=== PATIENT | female | born 1940 | race Caucasian/White ===

== ENCOUNTER → 2016-10-15 | Outpatient (CLI) | payer MEDICARE, OTHER | END | disposition home or self-care (01) | LOC: GMAB 10:33 | PROVIDERS: ATTEND Family Medicine | DX: E78.2 Mixed hyperlipidemia (principal); I10 Essential (primary) hypertension ==

== ENCOUNTER → 2016-10-29 | Outpatient (CLI) | payer MEDICARE, OTHER ==
--- NOTE | 2016-10-29 11:51 | MAM ---
History: Well woman exam. Date of exam: 10/29/2016 Services provided: Bilateral full field digital screening mammography. CAD, the images were reviewed with R2 computer aided detection. FINDINGS: Glandular tissue is scattered glandular contour. Study is compared with 2014 study. No dominant mass, architectural distortion or clustered microcalcification. IMPRESSION: Benign exam Recommendation: Routine annual mammography BIRAD CATEGORY: 2 BENIGN Electronically signed by: Vernell Ricardo MD 10/29/2016 11:50 AM [employer]GER
== END | disposition home or self-care (01) ==
LOC: MAMMO 09:33
PROVIDERS: ATTEND Family Medicine
DX: Z12.31 Encounter for screening mammogram for malignant neoplasm of breast (principal)

== ENCOUNTER 2017-02-26 08:24 | Emergency (ER) | payer MEDICARE, OTHER ==
--- NOTE | 2017-02-26 08:39 | ED.PDOC ---
History of Present Illness - General Chief Complaint: Skin/Abrasion/Tear Stated Complaint: Skin irritation to (R) 3rd finger Time Seen by Provider: 02/26/17 08:39 Source: patient, RN notes reviewed, Vital Signs reviewed Exam Limitations: no limitations - History of Present Illness Initial Comments: Nathaly Davis 76 y/o female noticed pus on her right middle finger 3 days ago and felt more pressure today and noted swelling got worse.No fever but with pus and redness. Timing/Duration: other - 3 days ago Severity: moderate Location: hands - right middle finger Improving Factors: rest Worsening Factors: movement Associated Symptoms: change in skin texture Allergies/Adverse Reactions: Allergies Sulfa Drugs Allergy (Verified 02/26/17 08:39) Other Itching Home Medications: Ambulatory Orders Doxycycline Hyclate 100 mg PO BID #14 tab 02/26/17 Review of Systems - Review of Systems Constitutional: States: no symptoms reported EENTM: States: no symptoms reported Respiratory: States: no symptoms reported Cardiology: States: no symptoms reported Genitourinary: States: no symptoms reported Musculoskeletal: States: see HPI Skin: States: see HPI Endocrine: States: no symptoms reported Hematologic/Lymphatic: States: no symptoms reported Past Medical History (General) - Patient Medical History Hx of COPD: Yes Hx Congestive Heart Failure: No Hx Hypertension: Yes Hx Diabetes: No Hx Other PMH: Yes - rheumatoid arthritis Surgical History: cholecystectomy, other - hysterectomy - Vaccination History Hx Tetanus, Diphtheria Vaccination: No Hx Influenza Vaccination: No Hx Pneumococcal Vaccination: No - Social History Hx Tobacco Use: Yes Hx Alcohol Use: No Hx Substance Use: No Hx Substance Use Treatment: No Hx Depression: No Feels Threatened In Home Enviroment: No Feels Threatened In a Relationship: No Hx Physical Abuse: No Hx Emotional Abuse: No Hx Suspected Abuse: No Family Medical History - Family History Mother Family History: Unknown Living Status: Unknown Hx Family Cancer: Yes - pancreatic cancer -several family members Hx Family;Other: Rheumatoid arthitis-mom Physical Exam - Physical Exam General Appearance: Alert, No apparent distress Eyes, Ears, Nose, Throat Exam: PERRL/EOMI, normal ENT inspection, TMs normal, pharynx normal Neck: non-tender, full range of motion, supple Cardiovascular/Chest: normal peripheral pulses, regular rate, rhythm, no edema, no murmur Respiratory: chest non-tender, lungs clear, normal breath sounds Gastrointestinal/Abdominal: normal bowel sounds, non tender, soft, no organomegaly Extremity: normal range of motion, non-tender, normal inspection, no pedal edema , no calf tenderness Neurologic: no motor/sensory deficits, alert, normal mood/affect, oriented x 3 Skin Exam: warm/dry, normal color, cyanosis Skin Problem Location: other - right middle finger Skin Character: erythema, swelling, tenderness, other - pustular eruption distal right middle finger Lymphatic: no adenopathy Progress - Progress Progress: 02/26/17 09:02 Vital Signs - 8 hr 02/26/17 08:39 Temperature 98.5 F Pulse Rate [ 72 Left Radial] Respiratory 20 Rate Blood Pressure 169/107 [Left Arm] O2 Sat by Pulse 96 Oximetry Procedures - Incision and Drainage #1 Site: right middle finger Procedure and Prep: betadine prep, wound culture collected, pus drained Blade Size: 11 Departure - Departure Clinical Impression: Paronychia of third finger, right Time of Disposition: 09:06 Disposition: Discharge to Home or Self Care Condition: Fair Departure Forms: ED Discharge - Pt. Copy, Patient Portal Self Enrollment Instructions: DI for Paronychia Referrals: Devin Rogers MD [Primary Care Provider] - 1-2 Weeks Prescriptions: Doxycycline Hyclate 100 mg PO BID #14 tab Home Medications: Ambulatory Orders Doxycycline Hyclate 100 mg PO BID #14 tab 02/26/17 Additional Instructions: Return to emergency room as needed;Follow up with primary md 03/04/2017 patient to call for appointment
[2017-02-26 08:40] VITALS: BP 169/107; TEMP 98.5; O2SAT 96
[2017-02-26] MEDS ORDERED: NEOMYCIN-BACITRACIN-POLYMYXIN 0.9 GM UD TOP ONE (08:47)
[2017-02-26] MEDS ORDERED: CLINDAMYCIN PHOSPHATE 150 MG/ML VIAL IM ONE (08:54)
[2017-02-26] MEDS ORDERED: CLINDAMYCIN HCL CAP 150 MG CAP PO ONE (08:56)
[2017-02-26] MEDS ORDERED: TETANUS,DIPHTHERIA,PERTUSSIS 1 EA SYG IM ONE (08:57)
== END 2017-02-26 09:30 | disposition home or self-care (01) ==
LOC: ER 08:24
DX: L03.011 Cellulitis of right finger (principal); J44.9 Chronic obstructive pulmonary disease, unspecified; I10 Essential (primary) hypertension; M06.9 Rheumatoid arthritis, unspecified; Z87.891 Personal history of nicotine dependence; Z88.2 Allergy status to sulfonamides; Z23 Encounter for immunization
CPT/HCPCS: 87070; 87077; 87186; J3490

== ENCOUNTER 2017-05-22 13:19 | Emergency (ER) | payer MEDICARE, OTHER ==
[2017-05-22 13:55] VITALS: TEMP 96.4
--- NOTE | 2017-05-22 14:22 | ED.PDOC ---
History of Present Illness - General Chief Complaint: Back Pain or Injury Stated Complaint: mid back pain Time Seen by Provider: 05/22/17 14:21 Source: patient Exam Limitations: no limitations - History of Present Illness Initial Comments: Nathaly Davis 76 y/o female stated that she had been having sharp pains on her back radiating to lower abdomen.Denies nausea,vomiting ,diarrhea,bowel or bladder dysfunction.Also stated moving stuff at home Thursday but denies heavy lifting.Standing and rolling over from lying position aggravates symptoms. Timing/Duration: other - 5 days ago Quality/Severity: sharpness Back Pain Location: T-spine, lumbar spine, paraspinous muscles Back Pain Radiation: other - see hpi Method of Injury/Prior Injury: unknown Improving Factors: rest Worsening Factors: movement Associated Symptoms: muscle spasms Allergies/Adverse Reactions: Allergies Sulfa Drugs Allergy (Verified 02/26/17 08:39) Other Itching Home Medications: Ambulatory Orders Baclofen 10 mg PO BID PRN #20 tab 05/22/17 Simvastatin 05/22/17 Tramadol HCl 50 mg PO BID PRN #30 tab 05/22/17 Voltaren 05/22/17 Review of Systems - Review of Systems Constitutional: States: other - fatigability EENTM: States: no symptoms reported Respiratory: States: no symptoms reported Cardiology: States: no symptoms reported Gastrointestinal/Abdominal: States: no symptoms reported Genitourinary: States: no symptoms reported Musculoskeletal: States: see HPI Neurological: States: no symptoms reported Past Medical History (General) - Patient Medical History Hx of COPD: Yes Hx Congestive Heart Failure: No Hx Hypertension: Yes Hx Diabetes: No Hx Other PMH: Yes - Rheumatoid arthritis Surgical History: cholecystectomy, other - knee ,foot,colonoscopy - Vaccination History Hx Tetanus, Diphtheria Vaccination: No Hx Influenza Vaccination: No Hx Pneumococcal Vaccination: No - Social History Hx Tobacco Use: Yes Hx Alcohol Use: No Hx Substance Use: No Hx Substance Use Treatment: No Hx Depression: No Hx Physical Abuse: No Hx Emotional Abuse: No Hx Suspected Abuse: No Family Medical History - Family History Mother Family History: Unknown Living Status: Unknown Age at (years of age): 95 Hx Cardiac Disease: Yes - parents Hx Family Cancer: Yes - pancreatic cancer -several family members Hx Family;Other: Rheumatoid arthitis-mom Physical Exam - Physical Exam General Appearance: Alert, Comfortable, No apparent distress Eyes, Ears, Nose, Throat Exam: PERRL/EOMI, normal ENT inspection Neck Exam: non-tender, normal alignment, normal inspection Cardiovascular/Respiratory: regular rate, rhythm, no M/R/G, normal peripheral pulses, normal breath sounds Peripheral Pulses: radial,right: 1+, radial,left: 1+ Gastrointestinal/Abdominal: non tender, soft, no organomegaly Back Exam: no CVA tenderness, no vertebral tenderness, muscle spasm - paralumbar muscle Neurologic: no motor/sensory deficits, alert, normal mood/affect, oriented x 3 Skin Exam: normal color, warm/dry Progress - Progress Progress: 05/22/17 14:45 Vital Signs - 8 hr 05/22/17 13:51 Temperature 96.4 F L Pulse Rate [ 63 Left Brachial] Respiratory 20 Rate Blood Pressure 144/82 [Left Arm] O2 Sat by Pulse 94 L Oximetry - Results/Orders Results/Orders: Laboratory Tests 05/22/17 05/22/17 14:47 14:58 WBC 8.6 RBC 5.28 Hgb 15.0 Hct 45.1 MCV 85.5 MCH 28.4 MCHC 33.2 RDW 13.9 Plt Count 213 MPV 7.6 Absolute Neuts (auto) 7.20 H Absolute Lymphs (auto) 0.80 L Absolute Monos (auto) 0.30 Absolute Eos (auto) 0.10 Absolute Basos (auto) 0.10 Neutrophils % 84.3 H Lymphocytes % 9.4 L Monocytes % 3.9 Eosinophils % 1.7 Basophils % 0.7 Urine Color Yellow Urine Appearance Clear Urine pH 6.0 Ur Specific [place] >= 1.030 Urine Protein 30 Urine Glucose (UA) Negative Urine Ketones Trace Urine Blood Moderate H Urine Nitrite Negative Urine Bilirubin Small H Urine Urobilinogen 0.2 Ur Leukocyte Esterase Negative Urine RBC 10-20 H Urine WBC 0 Ur Epithelial Cells 10-20 Urine Bacteria 1+ Discuss her microscopic hematuria and she stated that she had it for 20 years and multiple test done and nobody could figure out whats causing it. - EKG/XRAY/CT XRAY: chest - chest copd changes and unchanged pulmonary nodule Departure - Departure Clinical Impression: Low back pain associated with a spinal disorder other than radiculopathy or spinal stenosis Time of Disposition: 15:35 Disposition: Discharge to Home or Self Care Condition: Fair Departure Forms: ED Discharge - Pt. Copy, Patient Portal Self Enrollment Instructions: DI for Low Back Pain Referrals: Devin Rogers MD [Primary Care Provider] - 1-2 Weeks Prescriptions: Baclofen 10 mg PO BID PRN #20 tab PRN Reason: Muscle Spasms Tramadol HCl 50 mg PO BID PRN #30 tab PRN Reason: Pain Home Medications: Ambulatory Orders Baclofen 10 mg PO BID PRN #20 tab 05/22/17 Simvastatin 05/22/17 Tramadol HCl 50 mg PO BID PRN #30 tab 05/22/17 Voltaren 05/22/17
--- NOTE | 2017-05-22 15:00 | RAD ---
EXAM DESCRIPTION: Lumbar Spine 3 Views CLINICAL HISTORY: 76 years Female, pain COMPARISON: None. FINDINGS: 3 views of the lumbar spine show diffuse osteopenia of the osseous structures. No obvious compression fracture deformity is seen. There is grade 2 spondylolisthesis of L5 on S1 with severe disc space narrowing and vacuum disc. Suspect chronic L5 pars defects. There is at least moderate facet hypertrophic and degenerative change from L4 through S1. IMPRESSION: Grade 2 spondylolisthesis at L5-S1. Facet arthropathy from L4 through S1 is seen. Severe disc disease at L5-S1 is also noted. Electronically signed by: Jaxon Palmer MD 05/22/2017 2:59 PM CDT
--- NOTE | 2017-05-22 15:01 | RAD ---
EXAM DESCRIPTION: Thoracic Spine,AP Lateral CLINICAL HISTORY: pain COMPARISON: None. IMPRESSION: 2 views of the thoracic spine show diffuse osteopenia of the osseous structures. There is smooth increased kyphosis of the mid to upper thoracic spine. No compression fracture deformity is identified. Mild to moderate disc space narrowing most prominent in the central thoracic spine consistent with disc degenerative changes are seen. Moderate tortuosity of the thoracic aorta is seen. Electronically signed by: Jaxon Palmer MD 05/22/2017 3:00 PM CDT
--- NOTE | 2017-05-22 15:03 | RAD ---
EXAM DESCRIPTION: Chest,2 Views CLINICAL HISTORY: pain/fatigability COMPARISON: November 24, 2015 FINDINGS: Two-view chest x-ray shows mild enlargement of the cardiac silhouette without pulmonary vascular congestion. The lungs are mildly hyperinflated with chronic interstitial changes. Calcified pulmonary nodule right lung base is stable. Costophrenic angles are sharp. Osseous structures are unremarkable IMPRESSION: No radiographic evidence of acute cardiopulmonary disease in this emphysematous chest. Electronically signed by: Jaxon Palmer MD 05/22/2017 3:01 PM CDT
[2017-05-22 15:21] VITALS: BP 135/83; O2SAT 93
== END 2017-05-22 15:46 | disposition home or self-care (01) ==
LOC: ER 13:19
DX: M54.5 Low back pain (principal); R91.1 Solitary pulmonary nodule; R31.29 Other microscopic hematuria; J44.9 Chronic obstructive pulmonary disease, unspecified; I10 Essential (primary) hypertension; M06.9 Rheumatoid arthritis, unspecified; Z87.891 Personal history of nicotine dependence; Z88.2 Allergy status to sulfonamides

== ENCOUNTER → 2017-05-26 | Outpatient (CLI) | payer MEDICARE, OTHER ==
--- NOTE | 2017-05-27 11:52 | CT ---
EXAM DESCRIPTION: CT ABDOMEN AND PELVIS WITHOUT AND WITH CONTRAST CLINICAL HISTORY: NAUSEA AND VOMITING, UNSPECIFIED COMPARISON: Chest CT December 03, 2015 TECHNIQUE: CT of the abdomen and pelvis are performed prior to and during IV bolus administration of nonionic contrast. Oral contrast media was not utilized This exam was performed according to our departmental dose-optimization program, which includes automated exposure control, adjustment of the mA and/or kV according to patient size and/or use of iterative reconstruction technique. FINDINGS: The right lung base is clear except for a small calcified granuloma and a small area of platelike atelectasis or scarring at the lateral right lung base. The left lung base is abnormal with dense segmental or opacification consistent with dense atelectasis or consolidation of the posterior medial basilar segment of the left lower lobe. This is not well appreciated on the recent chest x-ray but was not present on prior chest CT December 03, 2015. Acute pneumonia or atelectasis is suspected. An infiltrative process such as a bronchoalveolar neoplasm cannot be excluded but is thought less likely. A small sliding-type hiatal hernia is present. The gallbladder is surgically absent and the liver demonstrates no cystic or solid masses but increasing mild intrahepatic and moderate extrahepatic ductal dilation is present and more prominent than prior 2015 CT examination. Common bile duct approaches 1 cm in diameter. A small normal spleen is present and the pancreas and adrenal glands appear normal with no evidence of cystic or solid mass or inflammation. Left kidney is normal in appearance with normal renal function. Right kidney demonstrates a bilobed or two adjacent benign-appearing cyst with a total complex approximately 2.5 x 3.5 cm in size projecting from the mid kidney posterior laterally. Aortic calcification with no significant aneurysm is present. Layering contrast in the bladder is evident with an anteverted uterus to the left of midline. Sigmoid colonic diverticulosis is present without acute inflammation. Small or large bowel caliber are normal with no evidence of obstruction. No abdominal ascites is noted. No adnexal masses or fluid collections are seen. Severe disc degenerative changes and grade 2 spondylolisthesis of L5 on S1 with what appears to be intact on pars with severe spinal stenosis at the L5-S1 level is apparent. Normal alignment is present from L4-5 cephalad. IMPRESSION: 1. New wedgelike dense opacification of the medial posterior left lung base consistent with segmental consolidation or atelectasis and new from November 2015 study. I would favor mucus plugging with a drowned lung or developing atelectasis or the possibility of a segmental pneumonitis. An infiltrative process such as a bronchoalveolar carcinoma is thought less likely but cannot be completely excluded. Complete chest CT for evaluation of the entire lung corrales may be of value. 2. Prior cholecystectomy with increasing intrahepatic and extrahepatic bile duct dilatation without obstructing mass or definite intraductal stone identified. Common bile duct is dilated to the level of the duodenum. Correlation with liver function studies recommended. 3. Benign cystic disease of the mid right kidney. 4. Severe disc degenerative disease and grade 2 spondylolisthesis L5 on S1 on a degenerative basis with severe central canal stenosis at L5-S1. 5. Left colonic diverticulosis and small hiatal hernia. Electronically signed by: Ross Magallon MD 05/27/2017 11:50 AM CDT
== END | disposition home or self-care (01) ==
LOC: CT 11:32
PROVIDERS: ATTEND Family Medicine
DX: R31.1 Benign essential microscopic hematuria (principal); R11.2 Nausea with vomiting, unspecified

== ENCOUNTER → 2017-06-01 | Outpatient (CLI) | payer MEDICARE, OTHER ==
--- NOTE | 2017-06-01 12:04 | CT ---
EXAM DESCRIPTION: Chest w/o Contrast: CT. CLINICAL HISTORY: PULMONARY atelectasis or consolidation. COMPARISON: CT scan of abdomen 05/26/2017. TECHNIQUE: Spiral-axial scans at 5.0 mm intervals through the lungs and thorax without IV contrast. 2.5 mm lung algorithm axial reconstructions. Coronal and sagittal 2.0 Mm reconstructions. Total Exam DLP: 319.86 mGy-cm. This exam was performed according to our departmental dose-optimization program which includes automated exposure control, adjustment of the mA and/or kV according to patient size and/or use of iterative reconstruction technique; to reduce radiation dose to as low as reasonably achievable (ALARA). FINDINGS: Increased density in the medial basal segments of the left lower lobe extending from the hemidiaphragm to the inferior left hilum and abutting the medial and posterior left pleura and the descending aorta/mediastinum border. Diffuse air bronchograms noted within this tissue which are more prevalent compared to the prior study. Endobronchial debris/tissue in the proximal left lower lobe bronchus (series 4, images 56-59). Increased volume overall bilateral lungs more on the right than the left. 5.5 mm nodule in the inferior lateral segment of the right middle lobe abutting the major fissure just above the right hemidiaphragm (image 90). Soft tissue density with smooth borders. No abnormal nodules elsewhere. Scarring or minimal atelectasis in the inferior lateral lingula. No pleural effusion or pneumothorax. Heterogeneous density in the thyroid gland. No dominant lymph nodes in the mediastinum or hilum but evaluation is limited due to lack of IV contrast. Coronary artery calcifications diffusely. Atherosclerotic calcifications in the aorta and proximal brachiocephalic vessels. No enlarged lymph nodes in the axillary regions bilaterally. Diffuse thoracic spondylosis with scoliosis with no bone destruction. IMPRESSION: 1. Atelectasis and/or pneumonia in the medial and basal segments of the left lower lobe abutting the pleura and the mediastinum. Air bronchograms are noted. Left hemithorax volume loss. No debris or tissue in the proximal left lower lobe bronchial branch to the segments. No definite mass, but consider bronchoscopic evaluation/tissue sampling. No left pleural effusion. Alternatively, consider CT thoracic follow-up three month interval. 2. 5.5 mm soft tissue nodule with smooth borders in the right middle lobe. Follow-up interval as noted in Paragraph 1, and according to [facility] Best Practice guidelines utilizing 2017 Fleischner Society recommendations for solitary pulmonary nodule follow-up. Please see below.* 3. Evaluation of lymph nodes in the mediastinum and hilum limited due to lack of IV contrast. Moderate coronary artery calcification. Atherosclerotic aortic calcification. *2017 Fleischner Society Recommendations for Single Solid Lung Nodule Follow-Up based on size (average of long- and short-axis diameters) <6 mm Low-Risk Patient: No routine follow-up <6 mm High-Risk Patient: Optional CT at 12 months 6-8 mm Low-Risk Patient: CT at 6-[address] at 18-24 months 6-8 mm High-Risk Patient: CT at 6-[address] at 18-24 months >8 mm Low-Risk Patient: Consider CT, PET/CT or tissue sampling at 3 months >8 mm High-Risk Patient: Same as for low-risk patient Electronically signed by: Isaac Mendoza MD 06/01/2017 12:03 PM CDT
== END | disposition home or self-care (01) ==
LOC: CT 11:49
PROVIDERS: ATTEND Family Medicine
DX: R91.1 Solitary pulmonary nodule (principal)

== ENCOUNTER → 2017-11-03 | Outpatient (CLI) | payer MEDICARE, OTHER | LOC: GMAB 10:56 | PROVIDERS: ATTEND Family Medicine | DX: I10 Essential (primary) hypertension (principal) ==

== ENCOUNTER → 2018-12-01 | Outpatient (CLI) | payer MEDICARE, OTHER ==
--- NOTE | 2018-12-01 16:45 | CT ---
EXAM DESCRIPTION: Chest w/o Contrast CLINICAL HISTORY: 78 years, Female, PULM NODULE COMPARISON: June 01, 2017 TECHNIQUE: Thin-section noncontrast axial CT images are obtained according to our protocol. Reconstructed MPR images are created and reviewed as well. This exam was performed according to our departmental dose-optimization program, which includes automated exposure control, adjustment of the mA and/or kV according to patient size and/or use of iterative reconstruction technique. FINDINGS: Unenhanced examination of the chest demonstrates a stable 5 mm nodule in the anterior right lung base adjacent to the diaphragm, slightly marred by respiratory motion on today's study but unchanged in comparison to examination 18 months earlier. No further workup is recommended. This likely represents a small calcified granuloma. Small amount of debris in the left lower lobe bronchus is no longer apparent as noted on prior examination. At the anterior left lung base there is linear stranding and hazy groundglass opacity most suspicious for a patchy area of infiltrate. This represents a new finding from prior study. This is in the anterolateral lung base in the region of the lingula. Soft tissue window images demonstrate an ectatic tortuous and calcified aorta and kyphosis of the dorsal spine without compression deformity or destructive process. No pleural effusions or additional areas of dense consolidation is seen. The thoracic inlet and superior mediastinum is unremarkable. Extensive coronary calcification with normal sized heart is noted. No significant hiatal hernia noted. One upper normal right axillary lymph node approximately 13 or 14 mm in diameter is evident. IMPRESSION: 1. Stable 5 mm nodule at the anterior right lung base, likely calcified. This is unchanged from prior study but less well delineated because of respiratory motion artifact. No additional workup recommended. 2. New stranding and vague groundglass opacity in the left anterior lung base in the region of the left lingula suspicious for a patchy area new infiltrative change. Correlation with physical examination and consideration for a follow-up study in several months to be certain of clearing is recommended. 3. Upper normal heart size with extensive coronary calcification. Kyphosis of the dorsal spine is noted with interval clearing of debris noted in the left lower lobe bronchus in comparison to prior remote study. Tiny amount of mucus or debris is present in the distal trachea just above the arian posteriorly. Electronically signed by: Ross Magallon MD 12/01/2018 4:42 PM CDT
== END ==
LOC: CT 15:52
PROVIDERS: ATTEND Family Medicine
DX: R91.1 Solitary pulmonary nodule (principal)

== ENCOUNTER 2019-10-11 22:31 | Emergency (ER) | payer MEDICARE, OTHER ==
--- NOTE | 2019-10-11 23:08 | ED.PDOC ---
History of Present Illness - General Chief Complaint: Lower Extremity Injury Stated Complaint: left hip pain Time Seen by Provider: 10/11/19 22:55 Source: patient, EMS Exam Limitations: no limitations - History of Present Illness Initial Comments: GROUND LEVEL FALL. L HIP AND THIGH PAIN. PT WAS AT HOME. SHE TURNED AND SLIPPED/TRIPPED. SHE FELL AND LANDED ON THE CARPET ONTO HER LEFT HIP. PAIN ENSUED IN L HIP AND L PROXIMAL THIGH. SHE DENIES HEAD COLLISION, LOC, OR ANY OTHER AREAS OF TRAUMA OR PAIN. Occurred: this evening Method of Injury: fell Improving Factors: immobilization Worsening Factors: movement Allergies/Adverse Reactions: Allergies Sulfa Drugs Allergy (Verified 02/26/17 08:39) Other Itching Home Medications: Ambulatory Orders Baclofen 10 mg PO BID PRN #20 tab 05/22/17 Simvastatin 05/22/17 Tramadol HCl 50 mg PO BID PRN #30 tab 05/22/17 Voltaren 05/22/17 Review of Systems - Review of Systems Constitutional: States: no symptoms reported EENTM: States: no symptoms reported. Denies: ear pain, throat pain, mouth pain Respiratory: States: no symptoms reported Cardiology: States: no symptoms reported. Denies: chest pain Gastrointestinal/Abdominal: States: no symptoms reported. Denies: abdominal pain Genitourinary: States: no symptoms reported. Denies: pain Musculoskeletal: States: see HPI. Denies: back pain, neck pain Skin: States: no symptoms reported. Denies: lesions, rash Neurological: Denies: headache, numbness, paresthesia, tingling, tremors, weakness Endocrine: States: no symptoms reported Hematologic/Lymphatic: Denies: blood clots, easy bleeding, easy bruising All other Systems: Reviewed and Negative Past Medical History (General) - Patient Medical History Hx Seizures: No Hx Stroke: No Hx Dementia: No Hx Asthma: No Hx of COPD: Yes Hx Cardiac Disorders: No Hx Congestive Heart Failure: No Hx Pacemaker: No Hx Hypertension: Yes Hx Thyroid Disease: No Hx Diabetes: No Hx Gastroesophageal Reflux: No Hx Renal Disease: No Hx Cancer: No Hx of HIV: No Hx Hepatitis C: No Hx MRSA: No Surgical History: cholecystectomy, other - Vaccination History Hx Tetanus, Diphtheria Vaccination: No Hx Influenza Vaccination: No Hx Pneumococcal Vaccination: No Immunizations Up to Date: No - Social History Hx Tobacco Use: Yes Hx Chewing Tobacco Use: No Hx Alcohol Use: No Hx Substance Use: No Hx Substance Use Treatment: No Hx Depression: No Feels Threatened In Home Enviroment: No Feels Threatened In a Relationship: No Hx Physical Abuse: No Hx Emotional Abuse: No Hx Suspected Abuse: No - Activities of Daily Living Hospice Agency (if applicable):: None - Female History Patient is a Female of Child Bearing Age (10 -59 yrs old): No - Triage Comment ED Triage Comment: pt states she has carpet at home and was on floor aprox 2 hours unable to get up Family Medical History - Family History Mother Family History: Unknown Living Status: Unknown Age at (years of age): 89 Hx Cardiac Disease: Yes - parents Hx Family Cancer: Yes - pancreatic cancer -several family members Hx Family;Other: Rheumatoid arthitis-mom Physical Exam - Physical Exam General Appearance: Alert, Other - RESTING Eyes, Ears, Nose, Throat: PERRL/EOMI, normal ENT inspection, TMs normal, pharynx normal Neck: non-tender, full range of motion, supple Cardiovascular/Respiratory: regular rate, rhythm, no M/R/G, normal peripheral pulses, no JVD, normal breath sounds, no respiratory distress, other - NORMAL DP/PT PULSES, EQUAL BL. VASCULARLY IN TACT - NO FEET PARESTHESIAS, NL FEET SENSORY AND MOTOR. Gastrointestinal/Abdominal: non-tender, no organomegaly Back: normal inspection, no CVA tenderness, no vertebral tenderness Thigh/Hip: normal inspection, bone tenderness, limited ROM - DUE TO PAIN. , so ft tissue tenderness Leg: normal inspection, non-tender, no evidence of injury, normal ROM, other - NO LLE ANGULATION NOR FORESHORTENING. Knee: normal inspection, non-tender, no evidence of injury, normal ROM Ankle: normal inspection, non-tender, no evidence of injury, normal ROM Foot: normal inspection, non-tender, no evidence of injury, normal ROM Neuro/Tendon: normal sensation, normal motor functions, normal tendon functions, responds to pain Mental Status: alert, oriented x 3 Skin: normal color, warm/dry, other - NO ECCHYMOSIS. Progress - Progress Progress: 10/11/19 23:46 L PELIVIS, HIP, AND FEMUR XRAYS: LEFT INTERTROCHANTERIC FRX, ONLY SLIGHTLY DISPLACED. NOT GROSSLY ROTATED AND DISTAL PULSES ARE STRONG, THUS NO ER REDUCTION NOR TRACTION NEEDED. WE ARE CONTACTING DR. ANTONIO, ORTHO, TO INQUIRE ABOUT MGMT. 10/12/19 00:33 [facility]THO IS UNAVAILABLE TONIGHT, THUS I AM CALLING [facility] TO TRANSFER FOR ORTHOPEDIC MGMT. 10/12/19 00:37 10/12/19 00:43 [facility], DR. SMALLS ER, ACCEPTED TRANSFER. THANK YOU VERY MUCH, [facility], FOR ACCEPTING FURTHER CARE! - Results/Orders Results/Orders: O2 SATS 92% ON RA, UP FROM 88% ON ER PRESENTATION. Departure - Departure Clinical Impression: Fracture due to fall, Hip pain, left Closed intertrochanteric fracture of left femur Qualifiers: Encounter type: initial encounter Fracture alignment: displaced Qualified Code(s): S72.142A - Displaced intertrochanteric fracture of left femur, initial encounter for closed fracture Disposition: Transfer to Hospital Condition: Good Departure Forms: ED Discharge - Pt. Copy, Patient Portal Self Enrollment Referrals: RADHA PARRA MD [Primary Care Provider] - 1-2 Weeks Home Medications: Ambulatory Orders Baclofen 10 mg PO BID PRN #20 tab 05/22/17 Simvastatin 05/22/17 Tramadol HCl 50 mg PO BID PRN #30 tab 05/22/17 Voltaren 05/22/17 Transfer to Outside Facility - Transfer Information Decision to Transfer Date: 10/12/19 Decision to Transfer Time: 00:45 Reason for Transfer: required specialist not available Accepting Provider:: DR. SMALLS, ER Accepting Facility: [facility]
--- NOTE | 2019-10-11 23:24 | RAD ---
EXAM: XR Left Hip With Pelvis When Performed, 2 or 3 Views CLINICAL HISTORY: The patient is 79 years old and is Female; fall pain TECHNIQUE: Two or three views of the left hip with pelvis when performed. COMPARISON: No relevant prior studies available. FINDINGS: BONES/JOINTS: A left intertrochanteric fracture is present. The femoral head is well located. No dislocation. SOFT TISSUES: Unremarkable. IMPRESSION: Left intertrochanteric fracture. Electronically signed by: Demetra Pacheco MD 10/11/2019 11:22 PM [facility]
--- NOTE | 2019-10-11 23:24 | RAD ---
EXAM: XR Pelvis, 1 or 2 Views CLINICAL HISTORY: The patient is 79 years old and is Female; fall pain TECHNIQUE: Frontal view of the pelvis. COMPARISON: No relevant prior studies available. FINDINGS: BONES/JOINTS: Left intertrochanteric fracture is present. The femoral heads are well located. The SI joints and pubic symphysis are intact without evidence of diastases. No dislocation. SOFT TISSUES: Unremarkable. IMPRESSION: Left intertrochanteric fracture. Electronically signed by: Demetra Pacheco MD 10/11/2019 11:23 PM [facility]
--- NOTE | 2019-10-11 23:25 | RAD ---
EXAM: XR Left Femur, 2 Views CLINICAL HISTORY: The patient is 79 years old and is Female; GROUND LEVEL FALL. L HIP AND THIGH PAIN. TECHNIQUE: Frontal and lateral views of the left femur. COMPARISON: No relevant prior studies available. FINDINGS: BONES/JOINTS: A left intertrochanteric fracture is present which is slightly displaced. Postsurgical change of the left knee is noted. The bones are osteopenic. No dislocation. SOFT TISSUES: Unremarkable. IMPRESSION: Left intertrochanteric fracture. Electronically signed by: Demetra Pacheco MD 10/11/2019 11:24 PM [facility]
[2019-10-12] MEDS ORDERED: MORPHINE SULFATE INJ 10 MG/ML VIAL ONE (00:52)
[2019-10-12] MEDS: MORPHINE SULFATE INJ 10 MG/ML VIAL IV ONE ×2 (00:54→01:25)
[2019-10-12 01:33] VITALS: BP 138/88; TEMP 97.6; O2SAT 97
== END 2019-10-12 01:33 | disposition short-term general hospital (02) ==
LOC: ER 22:31
DX: S72.142A Displaced intertrochanteric fracture of left femur, initial encounter for closed fracture (principal); J44.9 Chronic obstructive pulmonary disease, unspecified; I10 Essential (primary) hypertension; Z87.891 Personal history of nicotine dependence; Z88.2 Allergy status to sulfonamides; Z79.899 Other long term (current) drug therapy; W01.0XXA Fall on same level from slipping, tripping and stumbling without subsequent striking against object, initial encounter; Y92.009 Unspecified place in unspecified non-institutional (private) residence as the place of occurrence of the external cause
CPT/HCPCS: 72170; 73502; 73551; 81001; J2270

== ENCOUNTER → 2019-11-10 | Outpatient (CLI) | payer MEDICARE, OTHER | DX: R50.9 Fever, unspecified (principal) ==

== ENCOUNTER → 2020-01-04 | Outpatient (CLI) | payer MEDICARE, OTHER ==
--- NOTE | 2020-01-04 15:51 | CT ---
EXAM DESCRIPTION: Head CLINICAL HISTORY: 79 years Female, UNSPEC. DEMENTIA WITH BEHAVIORAL DISTURBANCE COMPARISON: None. TECHNIQUE: Axial images obtained from the skull base to the vertex without intravenous contrast with images. Coronal and sagittal reformations provided. This exam was performed according to our departmental dose-optimization program, which includes automated exposure control, adjustment of the mA and/or kV according to patient size and/or use of iterative reconstruction technique. Time Last Seen Well (If known) for Code Stroke: n/a FINDINGS: Brain Parenchyma, ventricles, meninges, and extra-axial spaces: Severe frontotemporal predominant cerebral atrophy. Severe Nonspecific white matter hypodensities in the cerebral hemispheres likely related to ischemic small vessel disease. Possible difficulty differentiating a small acute infarction given these hypodensities. Subcentimeter cortical infarction versus prominent perivascular space left basal ganglia. No acute intracranial hemorrhage. No abnormal extra-axial fluid collection. Vascular: Atherosclerosis is within the carotid siphons. Calvarium, paranasal sinuses, mastoids, and orbits: Calvarium intact. Visualized paranasal sinuses and mastoid air cells clear. Bilateral lens replacement. IMPRESSION: 1. No acute intracranial abnormality. Of note, CT is relatively insensitive when compared to MRI for evaluation of acute ischemic infarction. If there remains clinical concern, MRI of the brain is recommended. 2. Chronic lacunar infarction versus prominent perivascular space left basal ganglia. 3. Severe frontotemporal predominant cerebral atrophy. 4. Severe chronic microangiopathy. Electronically signed by: Meño Ren MD 01/04/2020 3:50 PM CDT
== END ==
LOC: GMAE 14:40
PROVIDERS: ATTEND Family Medicine
DX: F03.90 Unspecified dementia, unspecified severity, without behavioral disturbance, psychotic disturbance, mood disturbance, and anxiety (principal); G93.9 Disorder of brain, unspecified

== ENCOUNTER 2020-01-08 08:47 | Emergency (ER) | payer MEDICARE, OTHER ==
--- NOTE | 2020-01-08 10:01 | RAD ---
CLINICAL HISTORY: 79 years Female bruising 1 week COMPARISON: None TECHNIQUE: AP and lateral views of the right foot are obtained. FINDINGS: OSSEOUS: There is diffuse bone demineralization. Hammertoe deformities are noted involving the second through fourth digits. Postoperative changes of arthrodesis in the great toe noted with a screw transfixing the interim There is no evidence of acute fracture or osteolytic/osteoblastic lesions. 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 Medial subluxation of the proximal phalanx of the fifth digit relative to the deformed distal fifth metatarsal bone can indicate sequela of arthritis such as psoriatic arthritis versus sequela of remote trauma. The joint spaces are preserved. There is no evidence of degenerative osteophytosis or sclerosis. There is no evidence of marginal erosive changes to suggest an inflammatory arthritis. The ankle mortise is symmetric with a smooth talar dome and no evidence of widening of the distal tibiofibular syndesmosis. SOFT TISSUES: There is no significant soft tissue swelling or mass. No evidence of significant soft tissue calcifications. No radiopaque foreign bodies. There is no evidence of an ankle joint effusion. IMPRESSION: No acute osseous abnormality. However there is mild periosteal thickening along the lateral aspect of the mid diaphyses of the third and fourth digits which can indicate stress or insufficiency fractures Medial subluxation of the proximal phalanx of the fifth digit relative to the deformed distal fifth metatarsal bone can indicate sequela of arthritis such as psoriatic arthritis versus sequela of remote trauma. Remainder of findings as described above. Electronically signed by: Charley Anderson MD 01/08/2020 10:00 AM CDT
--- NOTE | 2020-01-08 10:01 | RAD ---
: 1940. Technique: Two views of the right ankle. Clinical history: bruising 1 week. Findings: There is moderate soft tissue swelling worse on the lateral side. No evidence for acute fracture. Normal articulations. Normal ankle mortise. No destructive lesion. Osteopenia. Advanced arthrosis in the midfoot with joint narrowing and osteophyte. Small heel spurs are seen. Impression: 1. Moderate swelling. No acute fracture. 2. Arthrosis and osteopenia. Electronically signed by: Keshawn Mendoza MD 01/08/2020 9:59 AM CDT
--- NOTE | 2020-01-08 10:03 | RAD ---
EXAM DESCRIPTION: Femur,Right CLINICAL HISTORY: 79 years Female bruising calf 1 week COMPARISON: None TECHNIQUE: AP and lateral views of the femur are obtained. FINDINGS: OSSEOUS: There is no evidence of acute fracture or osteolytic/osteoblastic lesions. There are postoperative changes of right total knee arthroplasty which appears well seated and intact There is no evidence of subluxation or dislocation. The joint spaces are preserved. There is no evidence of degenerative osteophytosis or sclerosis. There is no evidence of marginal erosive changes to suggest an inflammatory arthritis. SOFT TISSUE: There is no significant soft tissue swelling or mass. No evidence of significant soft tissue calcifications. Multiple skin marciano project along the infrapatellar region. No evidence of hip joint or suprapatellar effusions. IMPRESSION: No acute osseous abnormalities. Remainder of findings as described above. Electronically signed by: Charley Anderson MD 01/08/2020 10:01 AM CDT
--- NOTE | 2020-01-08 10:05 | RAD ---
EXAM DESCRIPTION: Tibia/Fibula,Right CLINICAL HISTORY: 79 years Female bruising 1 week COMPARISON: None TECHNIQUE: AP and lateral views of the right tibia/fibula are obtained. It should be noted that the AP views of the distal tibia and fibula do not include the ankle joint. FINDINGS: OSSEOUS: There are postoperative changes of right total knee arthroplasty which appears well seated and intact. Skin marciano project anterior to the knee. There is no evidence of acute fracture or osteolytic/osteoblastic lesions. The joint spaces are preserved. There are degenerative changes in the talonavicular and cuneonavicular joints and to a mild degree in the tibiotalar joint. There is no evidence of marginal erosive changes to suggest an inflammatory arthritis. SOFT TISSUE: There is no significant soft tissue swelling or mass. No evidence of significant soft tissue calcifications. No radiopaque foreign bodies. No evidence of a suprapatellar or ankle joint effusion. IMPRESSION: No acute osseous abnormalities status post right total knee arthroplasty.. Remainder of findings as described above. Electronically signed by: Charley Anderson MD 01/08/2020 10:04 AM CDT
--- NOTE | 2020-01-08 10:38 | ED.PDOC ---
History of Present Illness - General Chief Complaint: Lower Extremity Injury Stated Complaint: R lower leg injury Time Seen by Provider: 01/08/20 08:48 Source: patient, EMS, long-term records Exam Limitations: no limitations - History of Present Illness Initial Comments: The patient is a 79-year-old female presented emergency room from the long-term secondary to swelling and bruising to the right lower extremity below the knee. This is been present for about a week. The patient takes Eliquis. She is neurologically at her baseline with some significant peripheral neuropathy. She has a strong dorsalis pedis pulse at 2+ and a moderate posterior tibialis at 1+ on the right. She does have 3+ edema. She apparently does have some chronic edema but it is worse with the obvious bruising. She has chronic toe deformities. She has not had any significant pain in the toes that is new. She did not remember any significant injury. She does obviously have arthritic changes. The patient is pleasant and cooperative and no and in no distress otherwise. No difficulty breathing. She is alert and interactive this morning. Timing/Duration: 1 week Severity: mild Improving Factors: nothing Worsening Factors: nothing Associated Symptoms: denies symptoms Allergies/Adverse Reactions: Allergies Sulfa Drugs Allergy (Verified 01/08/20 09:31) Other Itching Home Medications: Ambulatory Orders Apixaban [Eliquis] 5 mg PO BID 01/08/20 Ascorbic Acid [Vitamin C 500 mg] 1 tab PO DAILY 01/08/20 Donepezil HCl [Aricept] 5 mg PO DAILY 01/08/20 Furosemide 20 mg PO DAILY PRN 01/08/20 Furosemide 40 mg PO DAILY 01/08/20 Hydroxychloroquine Sulfate [Plaquenil] 200 mg PO DAILY 01/08/20 Ibuprofen 800 mg PO Q8H PRN 01/08/20 Lactobacillus [Acidophilus Lactobacilli] 10 mg PO DAILY 01/08/20 Lisinopril 20 mg PO DAILY 01/08/20 Metoprolol Tartrate [Lopressor] 50 mg PO BID 01/08/20 Multiple Vitamins W/ Minerals [Multi Vitamin and Mineral] 1 tab PO DAILY 01/08/20 Potassium Chloride [Potassium Chloride ER] 10 meq PO DAILY PRN 01/08/20 Potassium Chloride [Potassium Chloride ER] 20 meq PO DAILY 01/08/20 Review of Systems - Review of Systems Constitutional: States: no symptoms reported EENTM: States: no symptoms reported Respiratory: States: no symptoms reported Cardiology: States: no symptoms reported Gastrointestinal/Abdominal: States: no symptoms reported Genitourinary: States: no symptoms reported Musculoskeletal: States: see HPI Skin: States: see HPI Neurological: States: see HPI Endocrine: States: no symptoms reported Hematologic/Lymphatic: States: easy bruising - Patient takes Eliquis All other Systems: No Change from Baseline Past Medical History (General) - Patient Medical History Hx Seizures: No Hx Stroke: No Hx Dementia: Yes Hx Asthma: No Hx of COPD: Yes Hx Cardiac Disorders: No Hx Congestive Heart Failure: No Hx Pacemaker: No Hx Hypertension: Yes Hx Thyroid Disease: No Hx Diabetes: No Hx Gastroesophageal Reflux: No Hx Renal Disease: No Hx Cancer: No Hx of HIV: No Hx Hepatitis C: No Hx MRSA: No Surgical History: other - Vaccination History Hx Tetanus, Diphtheria Vaccination: Yes Hx Influenza Vaccination: Yes Hx Pneumococcal Vaccination: Yes Immunizations Up to Date: Yes - Social History Hx Tobacco Use: Yes Hx Chewing Tobacco Use: No Hx Alcohol Use: No Hx Substance Use: No Hx Substance Use Treatment: No Hx Depression: No Hx Physical Abuse: No Hx Emotional Abuse: No Hx Suspected Abuse: No - Activities of Daily Living Assisted/Assisted Living (if applicable):: [facility] - Female History Patient is a Female of Child Bearing Age (10 -59 yrs old): No Patient : No Family Medical History - Family History Mother Family History: Unknown Living Status: Age at (years of age): 89 Hx Cardiac Disease: Yes - parents Hx Family Cancer: Yes - pancreatic cancer -several family members Hx Family;Other: Rheumatoid arthitis-mom Physical Exam - Physical Exam General Appearance: Alert, Comfortable, No apparent distress Eye Exam: bilateral normal Ears, Nose, Throat: hearing grossly normal, normal pharynx Neck: non-tender, supple Respiratory: chest non-tender, lungs clear, normal breath sounds, no respiratory distress, no accessory muscle use Cardiovascular/Chest: normal peripheral pulses, regular rate, rhythm Peripheral Pulses: radial,right: 2+, radial,left: 2+, dorsalis pedis,right: 2+, posterior tibialis,right: 1+ Gastrointestinal/Abdominal: non tender, soft Rectal Exam: deferred Extremity: normal range of motion - Given chronic arthritic limitations and previous surgeries, non-tender, normal capillary refill, pedal edema, other - The patient has significant bruising that is tracked down from the calf towards the foot. She also has a mild bruise on 1 of the toes. She does have chronic deformities of the toes previous arthritic changes. The patient gets around in a wheelchair. Neurologic: wood craftsman II-XII nml as tested, alert, normal mood/affect, oriented x 3 - Patient does actually know where she is, what month it is and why she is here at the emergency room. Skin Exam: other - Bruising to the right lower extremity as above. No obvious lacerations or new deformities Comments: Vital Signs (72 hours) 01/08/20 01/08/20 08:48 08:49 Temperature 98.4 F Pulse Rate [ 53 L 53 L Pulse ox] Respiratory 22 22 Rate Blood Pressure 129/76 [L brachial] O2 Sat by Pulse 91 L Oximetry Progress - Progress Progress: 01/08/20 10:44 The patient is a 79-year-old female presented emergency room secondary to bruising to her right lower extremity for last week. Does have associated edema. Compression stockings can be used on this patient to help reduce the edema and discomfort from that. The bruising is likely due to a spontaneous bleed or from an accidental bump while the patient is on Eliquis. The patient's Eliquis needs to be held for the next 5 days. Hemoglobin was greater than 10. No evidence of significant symptomatic anemia. ER warnings are given. Laboratory work otherwise looks fairly reassuring. Follow-up with facility doctor later this coming week. shaan bradford [phone] - Results/Orders Results/Orders: X-rays of the right femur, tib-fib, ankle and foot show no obvious acute trauma. There are multiple arthritic changes. Multiple surgery changes. There is a questionable mild periosteal reaction to the third and fourth digits possibly indicating a subacute trauma. She is not really hurting in this area. EKG shows sinus bradycardia with a few PACs. There is left axis deviation and borderline prolonged QT interval. There is some poor R wave progression. No definitive ST segment or T wave changes indicative of acute ischemia. No previous EKGs for comparison. Laboratory Results - last 24 hr 01/08/20 01/08/20 01/08/20 09:44 09:44 09:44 WBC 7.4 RBC 3.70 L Hgb 10.2 L Hct 31.2 L MCV 84.3 MCH 27.6 MCHC 32.8 L RDW 15.4 H Plt Count 206 MPV 8.4 Absolute Neuts (auto) 5.60 Absolute Lymphs (auto) 1.00 Absolute Monos (auto) 0.60 Absolute Eos (auto) 0.10 Absolute Basos (auto) 0.10 Neutrophils % 75.8 Lymphocytes % 13.4 L Monocytes % 8.5 Eosinophils % 1.3 Basophils % 1.0 PT 11.0 H INR 1.11 PTT (SP) 25.0 Sodium 140 Potassium 3.6 Chloride 99 L Carbon Dioxide 34 H Anion Gap 10.6 L BUN 14 Creatinine 0.60 BUN/Creatinine Ratio 23.3 H Random Glucose 89 Serum Osmolality 279.3 Calcium 8.5 Total Bilirubin 1.5 H AST 33 ALT 17 Alkaline Phosphatase 35 L Serum Total Protein 5.9 L Albumin 3.4 Globulin 2.5 Albumin/Globulin Ratio 1.4 - EKG/XRAY/CT CT Ordered: No Departure - Departure Clinical Impression: Peripheral edema Contusion of leg, right Qualifiers: Encounter type: initial encounter Qualified Code(s): S80.11XA - Contusion of right lower leg, initial encounter Disposition: Discharge to SNF Condition: Fair Departure Forms: ED Discharge - Pt. Copy, Patient Portal Self Enrollment Instructions: Contusion (DC) Diet: regular diet Activity: other - Use wheelchair for getting around Referrals: RADHA PARRA MD [Primary Care Provider] - 1-2 Weeks Home Medications: Ambulatory Orders Apixaban [Eliquis] 5 mg PO BID 01/08/20 Ascorbic Acid [Vitamin C 500 mg] 1 tab PO DAILY 01/08/20 Donepezil HCl [Aricept] 5 mg PO DAILY 01/08/20 Furosemide 20 mg PO DAILY PRN 01/08/20 Furosemide 40 mg PO DAILY 01/08/20 Hydroxychloroquine Sulfate [Plaquenil] 200 mg PO DAILY 01/08/20 Ibuprofen 800 mg PO Q8H PRN 01/08/20 Lactobacillus [Acidophilus Lactobacilli] 10 mg PO DAILY 01/08/20 Lisinopril 20 mg PO DAILY 01/08/20 Metoprolol Tartrate [Lopressor] 50 mg PO BID 01/08/20 Multiple Vitamins W/ Minerals [Multi Vitamin and Mineral] 1 tab PO DAILY 01/08/20 Potassium Chloride [Potassium Chloride ER] 10 meq PO DAILY PRN 01/08/20 Potassium Chloride [Potassium Chloride ER] 20 meq PO DAILY 01/08/20 Additional Instructions: The patient is a 79-year-old female presented emergency room secondary to bruising to her right lower extremity for last week. Does have associated edema. Compression stockings can be used on this patient to help reduce the edema and discomfort from that. The bruising is likely due to a spontaneous bleed or from an accidental bump while the patient is on Eliquis. The patient's Eliquis needs to be held for the next 5 days. Hemoglobin was greater than 10. No evidence of significant symptomatic anemia. ER warnings are given. Laboratory work otherwise looks fairly reassuring. Follow-up with facility doctor later this coming week.
[2020-01-08 11:21] VITALS: BP 103/78; TEMP 96.9; O2SAT 98
== END 2020-01-08 11:08 ==
LOC: ER 08:47
DX: S80.11XA Contusion of right lower leg, initial encounter (principal); F44.9 Dissociative and conversion disorder, unspecified; F03.90 Unspecified dementia, unspecified severity, without behavioral disturbance, psychotic disturbance, mood disturbance, and anxiety; R60.9 Edema, unspecified; Z87.891 Personal history of nicotine dependence; Z79.01 Long term (current) use of anticoagulants; Z79.899 Other long term (current) drug therapy; X58.XXXA Exposure to other specified factors, initial encounter; Y92.9 Unspecified place or not applicable

== ENCOUNTER 2020-01-26 22:02 | Emergency (ER) | payer MEDICARE, OTHER ==
--- NOTE | 2020-01-26 22:47 | RAD ---
EXAM DESCRIPTION: Chest,1 View CLINICAL HISTORY: mild confusion COMPARISON: 12/01/2018 FINDINGS: Single frontal view of the chest. Cardiomediastinal silhouette: Atherosclerotic calcification tortuosity of the thoracic aorta. Enlargement cardiac silhouette.. Lungs: Elevation of the hemidiaphragms. Linear bibasilar opacities. No pneumothorax or large effusion. Bones: Degenerative change of the spine and shoulders. Upper abdomen: No abnormality identified. IMPRESSION: 1. Linear bibasilar opacities may be related to elevation of the hemidiaphragms and subsegmental atelectasis however developing pneumonic process particularly in the left lung base could contribute to this appearance. Continued radiographic follow-up recommended. 2. Cardiomegaly. Electronically signed by: Dipak Lee 01/26/2020 10:45 PM CDT
[2020-01-26] MEDS: SODIUM CHLORIDE 0.9% 1000ML 1,000 ML IVS ONE (23:06)
--- NOTE | 2020-01-27 02:29 | CT ---
EXAM DESCRIPTION: CT of the head without contrast CLINICAL HISTORY: increased confusion today, eliquis use COMPARISON: 01/04/2020 TECHNIQUE: Axial CT of the head obtained from the skull apex to the skull base without contrast. FINDINGS: No acute intracranial hemorrhage identified. No mass, mass effect, shift of the midline, abnormal extra-axial fluid collection or CT evidence of acute ischemic change identified. The ventricular system and sulcal spaces are mildly enlarged compatible with mild cerebral atrophy. Confluent areas of hypodensity throughout the supratentorial white matter are nonspecific and may be related to chronic small vessel ischemic change. Focal area of encephalomalacia in the left extreme capsule likely represents a remote lacunar type infarction. The visualized paranasal sinuses and the mastoids are clear. No skull fracture identified. Visualized orbits and globes are unremarkable. Atherosclerotic calcification of the intracranial internal carotid arteries. IMPRESSION: 1. No acute intracranial abnormality by CT criteria. This exam was performed according to our departmental dose-optimization program, which includes automated exposure control, adjustment of the mA and/or kV according to patient size and/or use of iterative reconstruction technique. Electronically signed by: Dipak Lee 01/27/2020 2:28 AM CDT
--- NOTE | 2020-01-27 02:35 | ED.PDOC ---
History of Present Illness - General Chief Complaint: Neuro Symptoms/Deficits Stated Complaint: nothing is wrong with me Time Seen by Provider: 01/26/20 22:10 Source: patient Exam Limitations: clinical condition - History of Present Illness Initial Comments: The patient is a 79-year-old female presented emergency room from the half-way by ambulance secondary to confusion and agitation noted today at the half-way. The patient does have some baseline dementia but the behavior today was apparently outside of her normal. No recent falls. The patient does have some bruising to the right foot from a fall a couple of weeks ago. The patient has a history of significant chronic peripheral edema, hypertension, dementia, rheumatoid arthritis, hypomagnesemia, hypokalemia, hypercholesterolemia COPD and apparently strokes for which she takes Eliquis as prophylaxis. I do not have any cardiac history on this patient. There is no other cardiac information was with the half-way and her emergency contacts, her Greg and her son Cristobal are not picking up their phones as her emergency contact at this time. Again she may have a cardiac history that I simply do not know of. On a previous visit here earlier in the month for an unrelated issue she was in normal sinus rhythm and an EKG was done at that time. She has apparently had pneumonias and urinary tract infections in the past. She is saturating in the mid 90s on her routine 2 L at this time. She is actually pleasant and cooperative. She has not exhibited significant heart bizarre behavior in our presence, as she had at the half-way. She is not complaining of any chest or back pain. She is not complaining of any abdominal pain. Timing/Duration: other - 12 hours Severity: mild Improving Factors: nothing Worsening Factors: nothing Associated Symptoms: denies symptoms Allergies/Adverse Reactions: Allergies Sulfa Drugs Allergy (Verified 01/08/20 09:31) Other Itching Home Medications: Ambulatory Orders Apixaban [Eliquis] 5 mg PO BID 01/08/20 Ascorbic Acid [Vitamin C 500 mg] 1 tab PO DAILY 01/08/20 Donepezil HCl [Aricept] 5 mg PO DAILY 01/08/20 Furosemide 20 mg PO DAILY PRN 01/08/20 Furosemide 40 mg PO DAILY 01/08/20 Hydroxychloroquine Sulfate [Plaquenil] 200 mg PO DAILY 01/08/20 Ibuprofen 800 mg PO Q8H PRN 01/08/20 Lactobacillus [Acidophilus Lactobacilli] 10 mg PO DAILY 01/08/20 Lisinopril 20 mg PO DAILY 01/08/20 Metoprolol Tartrate [Lopressor] 50 mg PO BID 01/08/20 Multiple Vitamins W/ Minerals [Multi Vitamin and Mineral] 1 tab PO DAILY 01/08/20 Potassium Chloride [Potassium Chloride ER] 10 meq PO DAILY PRN 01/08/20 Potassium Chloride [Potassium Chloride ER] 20 meq PO DAILY 01/08/20 Review of Systems - Review of Systems Constitutional: States: no symptoms reported EENTM: States: no symptoms reported Respiratory: States: no symptoms reported Cardiology: States: no symptoms reported Gastrointestinal/Abdominal: States: no symptoms reported Genitourinary: States: no symptoms reported Musculoskeletal: States: no symptoms reported - Chronic changes from rheumatoid only Skin: States: no symptoms reported Neurological: States: see HPI - Increased confusion and agitation today. No focal neurological changes however. She did report a headache a few days ago. Endocrine: States: no symptoms reported All other Systems: No Change from Baseline Past Medical History (General) - Patient Medical History Hx Seizures: No Hx Stroke: No Hx Dementia: Yes Hx Asthma: No Hx of COPD: Yes Hx Cardiac Disorders: No Hx Congestive Heart Failure: No Hx Pacemaker: No Hx Hypertension: Yes Hx Thyroid Disease: No Hx Diabetes: No Hx Gastroesophageal Reflux: No Hx Renal Disease: No Hx Cancer: No Hx of HIV: No Hx Hepatitis C: No Hx MRSA: No - Vaccination History Hx Tetanus, Diphtheria Vaccination: Yes Hx Influenza Vaccination: Yes Hx Pneumococcal Vaccination: Yes - Social History Hx Tobacco Use: Yes Hx Chewing Tobacco Use: No Hx Alcohol Use: No Hx Substance Use: No Hx Substance Use Treatment: No Hx Depression: No Hx Physical Abuse: No Hx Emotional Abuse: No Hx Suspected Abuse: No - Female History Patient is a Female of Child Bearing Age (10 -59 yrs old): No Patient : No Family Medical History - Family History Mother Family History: Unknown Living Status: Age at (years of age): 89 Hx Cardiac Disease: Yes - parents Hx Family Cancer: Yes - pancreatic cancer -several family members Hx Family;Other: Rheumatoid arthitis-mom Physical Exam - Physical Exam General Appearance: Alert, Comfortable, Frail, No apparent distress Eye Exam: bilateral normal Ears, Nose, Throat: hearing grossly normal, normal pharynx Neck: full range of motion, supple Respiratory: no respiratory distress, no accessory muscle use, other - Mild rales at the left lung base Cardiovascular/Chest: normal peripheral pulses, regular rate, rhythm Peripheral Pulses: radial,right: 2+, radial,left: 2+ Gastrointestinal/Abdominal: non tender, soft Rectal Exam: deferred Back Exam: no vertebral tenderness Extremity: normal capillary refill, pedal edema - +1 bilaterally, other - Chronic arthritic changes related to rheumatoid 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 She knows who she is and that she is at a hospital. Skin Exam: normal color - With the exception of the bruising to the right foot. Comments: Vital Signs - 24 hr 01/26/20 01/26/20 01/26/20 22:18 23:02 23:27 Temperature 97.9 F 98.1 F Pulse Rate [ 70 67 monitor] Respiratory 18 14 Rate Blood Pressure 136/85 130/88 [Right Arm] O2 Sat by Pulse 99 97 Oximetry 01/27/20 01/27/20 01/27/20 00:00 01:08 01:44 Temperature 96.9 F L Pulse Rate [ 72 84 84 monitor] Respiratory 16 16 16 Rate Blood Pressure 125/79 145/65 140/99 [Right Arm] O2 Sat by Pulse 95 95 95 Oximetry Progress - Progress Progress: 01/27/20 02:39 The patient is a 79-year-old female presented emergency room by ambulance from the half-way secondary to increased confusion today. Patient does have baseline dementia. Work-up has yielded what appears to be the start of a small left lower lobe pneumonia. The patient is being given a dose of Rocephin. Additionally the patient is mildly dehydrated, likely as a result of fairly aggressive diuresis for the peripheral edema issue. She did receive a small fluid bolus to that end. Additionally the patient appears to have had a non-ST elevation SD sometime in the last 5 or 6 days. It is possible that it may have occurred today. Troponin is approximately 3 times normal elevated. Again I have no cardiac history on this patient. The patient is currently anticoagulated with Eliquis however. The patient is being transferred for cardiology evaluation. Certainly her chronic dependent edema may be worsened by poor cardiac function. Transferring for specialty and higher level of care. Vital signs are stable at this time. She did receive an aspirin. She is chest pain-free at this time. shaan bradford [phone] - Results/Orders Results/Orders: EKG shows normal sinus rhythm at 68 bpm. Left axis deviation with poor R wave progression. Nonspecific intraventricular conduction block. No definitive acute ST segment or T wave changes when compared with previous EKG. Borderline prolonged QT interval. Chest x-ray shows possible infiltrate in the left lower lobe. Laboratory Tests 01/26/20 01/26/20 01/27/20 21:55 21:55 01:05 WBC 10.8 RBC 4.53 Hgb 12.0 Hct 37.2 MCV 82.3 MCH 26.6 L MCHC 32.3 L RDW 16.1 H Plt Count 327 MPV 8.1 Absolute Neuts (auto) 8.50 H Absolute Lymphs (auto) 1.40 Absolute Monos (auto) 0.70 Absolute Eos (auto) 0.10 Absolute Basos (auto) 0.10 Neutrophils % 79.0 H Lymphocytes % 12.9 L Monocytes % 6.5 Eosinophils % 1.0 Basophils % 0.6 Sodium 136 Potassium 4.5 Chloride 101 Carbon Dioxide 26 Anion Gap 13.5 BUN 31 H Creatinine 0.84 BUN/Creatinine Ratio 36.9 H Random Glucose 106 H Serum Osmolality 278.9 Calcium 9.4 Magnesium 1.9 Total Bilirubin 1.0 AST 25 ALT 16 Alkaline Phosphatase 50 Creatine Kinase 78 CK-MB (CK-2) 9.4 H* CK-MB (CK-2) % Not Reportable Troponin I 0.14 H* 0.14 H* B-Natriuretic Peptide 1590.0 H* Serum Total Protein 7.3 Albumin 4.1 Globulin 3.2 Albumin/Globulin Ratio 1.3 TSH 6.96 H Departure - Departure Clinical Impression: NSTEMI (non-ST elevated myocardial infarction), Delirium Pneumonia Qualifiers: Pneumonia type: due to unspecified organism Laterality: left Lung location: lower lobe of lung Qualified Code(s): J18.9 - Pneumonia, unspecified organism Disposition: Transfer to Hospital Condition: Poor Departure Forms: ED Discharge - Pt. Copy, Patient Portal Self Enrollment Referrals: RADHA PARRA MD [Primary Care Provider] - 1-2 Weeks Home Medications: Ambulatory Orders Apixaban [Eliquis] 5 mg PO BID 01/08/20 Ascorbic Acid [Vitamin C 500 mg] 1 tab PO DAILY 01/08/20 Donepezil HCl [Aricept] 5 mg PO DAILY 01/08/20 Furosemide 20 mg PO DAILY PRN 01/08/20 Furosemide 40 mg PO DAILY 01/08/20 Hydroxychloroquine Sulfate [Plaquenil] 200 mg PO DAILY 01/08/20 Ibuprofen 800 mg PO Q8H PRN 01/08/20 Lactobacillus [Acidophilus Lactobacilli] 10 mg PO DAILY 01/08/20 Lisinopril 20 mg PO DAILY 01/08/20 Metoprolol Tartrate [Lopressor] 50 mg PO BID 01/08/20 Multiple Vitamins W/ Minerals [Multi Vitamin and Mineral] 1 tab PO DAILY 12/29 Potassium Chloride [Potassium Chloride ER] 10 meq PO DAILY PRN 01/08/20 Potassium Chloride [Potassium Chloride ER] 20 meq PO DAILY 01/08/20 Transfer to Outside Facility - Transfer Information Decision to Transfer Date: 01/27/20 Decision to Transfer Time: 02:42 Reason for Transfer: specialized care not available Accepting Provider:: dr lehman Accepting Facility: [facility]
[2020-01-27] MEDS: cefTRIAXone SODIUM 1 GM in SODIUM CHL 0.9% 50ML MIN-BAG+ 50 ML IVPB ONE (02:43)
[2020-01-27] MEDS: ASPIRIN TABLET 325 MG TAB PO ONE (02:43)
[2020-01-27 03:14] VITALS: BP 129/81; TEMP 98; O2SAT 96
== END 2020-01-27 03:15 | disposition short-term general hospital (02) ==
LOC: ER 22:02
DX: I21.4 Non-ST elevation (NSTEMI) myocardial infarction (principal); R41.0 Disorientation, unspecified; J18.9 Pneumonia, unspecified organism; I10 Essential (primary) hypertension; J44.9 Chronic obstructive pulmonary disease, unspecified; F03.90 Unspecified dementia, unspecified severity, without behavioral disturbance, psychotic disturbance, mood disturbance, and anxiety; Z79.01 Long term (current) use of anticoagulants; Z86.73 Personal history of transient ischemic attack (TIA), and cerebral infarction without residual deficits; Z79.899 Other long term (current) drug therapy
CPT/HCPCS: 71045; 80053; 82550; 82553; 83735; 83880; 84443; 84484; 85025; 93005; J7030

== ENCOUNTER → 2020-02-01 | Outpatient (CLI) | payer MEDICARE, OTHER | LOC: GMAE 12:02 | PROVIDERS: ATTEND Family Medicine | DX: Z79.899 Other long term (current) drug therapy (principal) ==

== ENCOUNTER 2020-02-04 14:31 | Emergency (ER) | payer MEDICARE, OTHER ==
[2020-02-04 15:04] VITALS: TEMP 99
[2020-02-04] MEDS ORDERED: QUEtiapine FUMARATE 25 MG TAB PO ONE (18:06)
--- NOTE | 2020-02-04 19:25 | ED.PDOC ---
History of Present Illness - General Chief Complaint: Neuro Symptoms/Deficits Stated Complaint: psychosis Time Seen by Provider: 02/04/20 14:32 Source: patient, EMS notes reviewed, custodial records Exam Limitations: clinical condition - History of Present Illness Initial Comments: The patient is a 79-year-old female presenting to the emergency room secondary to being extremely depressed and acting out with staff. The patient reports that she wants to kill herself because she cannot see her family as the custodial is locked down due to coronavirus. She reports that multiple of her children have she does not have anything to live for. This is actually true, multiple of her children have but she does still have a son and a . No trauma recently. The patient was apparently acting fairly normally yesterday. This behavior started this morning when she woke up. We actually did see her a week ago for a similar episode of this behavior but by the time she arrived here she was acting normally again. The patient does have some baseline dementia. She was started on Celexa 1 day ago. I do not think that she is hallucinating. I do not think that she is confused beyond her baseline. She is despondent and crying. After a dose of Ativan here she is essentially back to her normal self. No focal neurological changes. She is not complaining of anything other than just wanting to see her family. She is now cooperative with staff. Timing/Duration: other - 12 hours Severity: moderate Improving Factors: medication Worsening Factors: nothing Associated Symptoms: denies symptoms Allergies/Adverse Reactions: Allergies Sulfa Drugs Allergy (Verified 01/08/20 09:31) Other Itching Home Medications: Ambulatory Orders Apixaban [Eliquis] 5 mg PO BID 01/08/20 Ascorbic Acid [Vitamin C 500 mg] 1 tab PO DAILY 01/08/20 Donepezil HCl [Aricept] 5 mg PO DAILY 01/08/20 Furosemide 20 mg PO DAILY PRN 01/08/20 Furosemide 40 mg PO DAILY 01/08/20 Hydroxychloroquine Sulfate [Plaquenil] 200 mg PO DAILY 01/08/20 Ibuprofen 800 mg PO Q8H PRN 01/08/20 Lactobacillus [Acidophilus Lactobacilli] 10 mg PO DAILY 01/08/20 Lisinopril 20 mg PO DAILY 01/08/20 Metoprolol Tartrate [Lopressor] 50 mg PO BID 01/08/20 Multiple Vitamins W/ Minerals [Multi Vitamin and Mineral] 1 tab PO DAILY 01/08/20 Potassium Chloride [Potassium Chloride ER] 10 meq PO DAILY PRN 01/08/20 Potassium Chloride [Potassium Chloride ER] 20 meq PO DAILY 01/08/20 Alprazolam [Xanax] 1 mg PO DAILY PRN #7 tab 02/04/20 Quetiapine Fumarate [Seroquel] 50 mg PO BID #30 tab 02/04/20 Review of Systems - Review of Systems Constitutional: States: no symptoms reported EENTM: States: no symptoms reported Respiratory: States: no symptoms reported Cardiology: States: no symptoms reported Gastrointestinal/Abdominal: States: no symptoms reported Genitourinary: States: no symptoms reported Musculoskeletal: States: no symptoms reported Skin: States: no symptoms reported Neurological: States: see HPI, anxiety, depressed Endocrine: States: no symptoms reported All other Systems: No Change from Baseline Past Medical History (General) - Patient Medical History Hx Seizures: No Hx Stroke: No Hx Dementia: Yes Hx Asthma: No Hx of COPD: Yes Hx Cardiac Disorders: Yes - NSTEMI Hx Congestive Heart Failure: No Hx Pacemaker: No Hx Hypertension: Yes Hx Thyroid Disease: No Hx Diabetes: No Hx Gastroesophageal Reflux: No Hx Renal Disease: No Hx Cancer: No Hx of HIV: No Hx Hepatitis C: No Hx MRSA: No - Vaccination History Hx Tetanus, Diphtheria Vaccination: Yes Hx Influenza Vaccination: Yes Hx Pneumococcal Vaccination: Yes - Social History Hx Tobacco Use: Yes Hx Chewing Tobacco Use: No Hx Alcohol Use: No Hx Substance Use: No Hx Substance Use Treatment: No Hx Depression: No Hx Physical Abuse: No Hx Emotional Abuse: No Hx Suspected Abuse: No - Female History Patient : No Family Medical History - Family History Mother Family History: Unknown Living Status: Age at (years of age): 89 Hx Cardiac Disease: Yes - parents Hx Family Cancer: Yes - pancreatic cancer -several family members Hx Family;Other: Rheumatoid arthitis-mom Physical Exam - Physical Exam General Appearance: Alert, Anxious, Obvious distress, Restless Eye Exam: bilateral normal Ears, Nose, Throat: hearing grossly normal, normal pharynx Neck: non-tender, supple Respiratory: lungs clear, normal breath sounds, no respiratory distress, no accessory muscle use Cardiovascular/Chest: normal peripheral pulses, no edema, other - Regular rate Peripheral Pulses: radial,right: 2+, radial,left: 2+ Gastrointestinal/Abdominal: non tender, soft Rectal Exam: deferred Back Exam: no CVA tenderness, no vertebral tenderness Extremity: normal range of motion, non-tender, normal inspection, no pedal edema, normal capillary refill Neurologic: alert, other - The patient knows she is at the [facility]. She is initially despondant saying that she just wants to because she cannot see her family. She does know she is at the [facility]. She knows why she is here. She is uncertain of the date. This seems to be her baseline as far as orientation. Skin Exam: normal color Comments: Vital Signs - 24 hr 02/04/20 02/04/20 02/04/20 14:31 15:00 16:00 Temperature 99.0 F Pulse Rate [ 72 64 55 L right brachial] Respiratory 20 18 18 Rate Blood Pressure 123/81 112/76 123/79 [right brachial ] O2 Sat by Pulse 96 98 98 Oximetry 02/04/20 02/04/20 02/04/20 17:00 18:00 19:00 Temperature Pulse Rate [ 56 L 54 L right brachial] Respiratory 14 14 14 Rate Blood Pressure 130/76 115/72 91/65 [right brachial ] O2 Sat by Pulse 94 L Oximetry Progress - Progress Progress: 02/04/20 19:28 The patient is a 79-year-old female presenting with severe depression and intermittent outburst of aggressive behavior toward staff likely related to depression and her dementia. The patient is calm and reasonable now. She does not want to kill herself now she just wants to see her family. The patient has been started on Celexa by her primary care doctor. Given the severity of the behaviors today, the patient is going to be started on low-dose Seroquel at least for the short-term while the Celexa is ramping up in order to reduce the severity of the depression and reduce the aggressive behavior. Additionally, the 0.25 mg dose of Xanax received earlier in the day was markedly insufficient for this patient. She is going to be written for 1 mg Xanax tablets to be taken once daily if needed for severe anxiety or aggression. I do want her followed up with her primary care doctor early this coming week for further adjustment of medications as needed. The ramping up of psychiatric medications in geriatric patients is certainly not without risk however, I believe the risks are greater leaving her off of these medications. If we are not seeing a significant improvement over the next week or 2, then inpatient treatment may be warranted for this patient. Sunlight and exercise may also help with her depression, along with getting to see her family when at all possible. ER warnings are given. shaan bradford 747 02/04/20 19:36 [facility] conslted - Results/Orders Results/Orders: Laboratory Tests 02/04/20 02/04/20 15:41 15:41 WBC 7.2 RBC 4.10 L Hgb 10.7 L Hct 32.9 L MCV 80.2 L MCH 26.1 L MCHC 32.5 L RDW 15.8 H Plt Count 311 MPV 7.8 Absolute Neuts (auto) 5.30 Absolute Lymphs (auto) 1.30 Absolute Monos (auto) 0.50 Absolute Eos (auto) 0.10 Absolute Basos (auto) 0.10 Neutrophils % 73.2 Lymphocytes % 17.5 L Monocytes % 7.5 Eosinophils % 1.0 Basophils % 0.8 Sodium 135 Potassium 3.5 L Chloride 100 L Carbon Dioxide 25 Anion Gap 13.5 BUN 26 H Creatinine 0.66 BUN/Creatinine Ratio 39.4 H Random Glucose 88 Serum Osmolality 274.3 L Calcium 8.8 Total Bilirubin 0.7 AST 23 ALT 14 Alkaline Phosphatase 54 Serum Total Protein 6.2 L Albumin 3.5 Globulin 2.7 Albumin/Globulin Ratio 1.3 Departure - Departure Clinical Impression: Depressive disorder, Suicidal ideation Disposition: Discharge to SNF Condition: Fair Departure Forms: ED Discharge - Pt. Copy, Patient Portal Self Enrollment Instructions: Depression Diet: regular diet Activity: increase activity as tolerated Referrals: RADHA PARRA MD [Primary Care Provider] - 1-2 Weeks Prescriptions: Alprazolam [Xanax] 1 mg PO DAILY PRN #7 tab PRN Reason: Anxiety Quetiapine Fumarate [Seroquel] 50 mg PO BID #30 tab Home Medications: Ambulatory Orders Apixaban [Eliquis] 5 mg PO BID 01/08/20 Ascorbic Acid [Vitamin C 500 mg] 1 tab PO DAILY 01/08/20 Donepezil HCl [Aricept] 5 mg PO DAILY 01/08/20 Furosemide 20 mg PO DAILY PRN 01/08/20 Furosemide 40 mg PO DAILY 01/08/20 Hydroxychloroquine Sulfate [Plaquenil] 200 mg PO DAILY 01/08/20 Ibuprofen 800 mg PO Q8H PRN 01/08/20 Lactobacillus [Acidophilus Lactobacilli] 10 mg PO DAILY 01/08/20 Lisinopril 20 mg PO DAILY 01/08/20 Metoprolol Tartrate [Lopressor] 50 mg PO BID 01/08/20 Multiple Vitamins W/ Minerals [Multi Vitamin and Mineral] 1 tab PO DAILY 01/08/20 Potassium Chloride [Potassium Chloride ER] 10 meq PO DAILY PRN 01/08/20 Potassium Chloride [Potassium Chloride ER] 20 meq PO DAILY 01/08/20 Alprazolam [Xanax] 1 mg PO DAILY PRN #7 tab 02/04/20 Quetiapine Fumarate [Seroquel] 50 mg PO BID #30 tab 02/04/20 Additional Instructions: The patient is a 79-year-old female presenting with severe depression and intermittent outburst of aggressive behavior toward staff likely related to depression and her dementia. The patient is calm and reasonable now. She does not want to kill herself now she just wants to see her family. The patient has been started on Celexa by her primary care doctor. Given the severity of the behaviors today, the patient is going to be started on low-dose Seroquel at least for the short-term while the Celexa is ramping up in order to reduce the severity of the depression and reduce the aggressive behavior. Additionally, the 0.25 mg dose of Xanax received earlier in the day was markedly insufficient for this patient. She is going to be written for 1 mg Xanax tablets to be taken once daily if needed for severe anxiety or aggression. I do want her followed up with her primary care doctor early this coming week for further adjustment of medications as needed. The ramping up of psychiatric medications in geriatric patients is certainly not without risk however, I believe the risks are greater leaving her off of these medications. If we are not seeing a significant improvement over the next week or 2, then inpatient treatment may be warranted for this patient. Sunlight and exercise may also help with her depression, along with getting to see her family when at all possible. ER warnings are given.
[2020-02-04 20:36] VITALS: BP 118/68; O2SAT 98
== END 2020-02-04 20:20 ==
LOC: ER 14:31
DX: F32.9 Major depressive disorder, single episode, unspecified (principal); R45.851 Suicidal ideations; F03.90 Unspecified dementia, unspecified severity, without behavioral disturbance, psychotic disturbance, mood disturbance, and anxiety; I10 Essential (primary) hypertension; I25.2 Old myocardial infarction; J44.9 Chronic obstructive pulmonary disease, unspecified; Z79.899 Other long term (current) drug therapy; Z87.891 Personal history of nicotine dependence
CPT/HCPCS: 36415; 80053; 85025; J2060

== ENCOUNTER → 2020-02-12 | Outpatient (CLI) | payer MEDICARE, OTHER | LOC: GOCC 16:55 | PROVIDERS: ATTEND Family Medicine | DX: F03.90 Unspecified dementia, unspecified severity, without behavioral disturbance, psychotic disturbance, mood disturbance, and anxiety (principal); Z13.0 Encounter for screening for diseases of the blood and blood-forming organs and certain disorders involving the immune mechanism; F17.200 Nicotine dependence, unspecified, uncomplicated ==

== ENCOUNTER 2020-05-18 10:35 | Emergency (ER) | payer MEDICARE, OTHER ==
--- NOTE | 2020-05-18 10:55 | ED.PDOC ---
History of Present Illness - General Chief Complaint: Neuro Symptoms/Deficits Time Seen by Provider: 05/18/20 10:50 - History of Present Illness Initial Comments: 79 yo F sent from care home facility c/o Altered Mental Status. Staff report patient is rambling and confused and they are unable to obtain a urine sample. Pt. is confused but suspect at her baseline, she remarks 'there's nothing wrong with me they think I'm crazy' Oriented to self but rambling speech poor historian requires frequent redirection. Denies pain. Not able to contribute much else in the way of meaningful information but NAD. Allergies/Adverse Reactions: Allergies Sulfa Drugs Allergy (Verified 05/18/20 11:02) Other Itching Home Medications: Ambulatory Orders Apixaban [Eliquis] 5 mg PO BID 01/08/20 Ascorbic Acid [Vitamin C 500 mg] 1 tab PO DAILY 01/08/20 Donepezil HCl [Aricept] 5 mg PO DAILY 01/08/20 Furosemide 20 mg PO DAILY PRN 01/08/20 Furosemide 40 mg PO DAILY 01/08/20 Hydroxychloroquine Sulfate [Plaquenil] 200 mg PO DAILY 01/08/20 Ibuprofen 800 mg PO Q8H PRN 01/08/20 Lactobacillus [Acidophilus Lactobacilli] 10 mg PO DAILY 01/08/20 Lisinopril 20 mg PO DAILY 01/08/20 Metoprolol Tartrate [Lopressor] 50 mg PO BID 01/08/20 Multiple Vitamins W/ Minerals [Multi Vitamin and Mineral] 1 tab PO DAILY 01/08/20 Potassium Chloride [Potassium Chloride ER] 10 meq PO DAILY PRN 01/08/20 Potassium Chloride [Potassium Chloride ER] 20 meq PO DAILY 01/08/20 Alprazolam [Xanax] 1 mg PO DAILY PRN #7 tab 02/04/20 Quetiapine Fumarate [Seroquel] 50 mg PO BID #30 tab 02/04/20 Review of Systems - Review of Systems Constitutional: States: see HPI EENTM: States: see HPI Respiratory: States: see HPI Cardiology: States: see HPI Gastrointestinal/Abdominal: States: see HPI Genitourinary: States: see HPI Musculoskeletal: States: see HPI Skin: States: see HPI Neurological: States: see HPI Endocrine: States: see HPI Unable to Obtain Due To: other - confused, rambling Past Medical History (General) - Patient Medical History Hx Seizures: No Hx Stroke: No Hx Dementia: Yes Hx Asthma: No Hx of COPD: Yes Hx Cardiac Disorders: Yes - NSTEMI Hx Congestive Heart Failure: No Hx Pacemaker: No Hx Hypertension: Yes Hx Thyroid Disease: No Hx Diabetes: No Hx Gastroesophageal Reflux: No Hx Renal Disease: No Hx Cancer: No Hx of HIV: No Hx Hepatitis C: No Hx MRSA: No - Vaccination History Hx Tetanus, Diphtheria Vaccination: Yes Hx Influenza Vaccination: Yes Hx Pneumococcal Vaccination: Yes - Social History Hx Tobacco Use: Yes Hx Chewing Tobacco Use: No Hx Alcohol Use: No Hx Substance Use: No Hx Substance Use Treatment: No Hx Depression: No Hx Physical Abuse: No Hx Emotional Abuse: No Hx Suspected Abuse: No - Female History Patient : No Family Medical History - Family History Mother Family History: Unknown Living Status: Age at (years of age): 89 Hx Cardiac Disease: Yes - parents Hx Family Cancer: Yes - pancreatic cancer -several family members Hx Family;Other: Rheumatoid arthitis-mom Physical Exam - Physical Exam General Appearance: No apparent distress Eye Exam: bilateral normal Ears, Nose, Throat: normal ENT inspection Neck: non-tender, full range of motion Respiratory: no respiratory distress Cardiovascular/Chest: regular rate, rhythm Gastrointestinal/Abdominal: non tender, soft Rectal Exam: deferred Back Exam: normal inspection Extremity: non-tender, normal inspection Neurologic: no motor/sensory deficits Skin Exam: normal color Progress - Progress Progress: 05/18/20 10:57 A/P-Altered Mental Status-iv cbc cmp lipase trop ekg cxr ct abdomen pelvis ct head ua reassess 05/18/20 12:22 Trop Elevated NSTEMI, Elevated Troponin Transfer - Results/Orders Results/Orders: EKG-non specific TW changes No STEMI TWI lead I,aVL NSR 64 bpm grossly unchanged when compared to prior study Laboratory Tests 05/18/20 05/18/20 05/18/20 11:16 11:16 11:16 WBC 5.7 RBC 5.03 Hgb 12.6 Hct 38.1 MCV 75.7 L MCH 25.0 L MCHC 33.0 RDW 19.1 H Plt Count 244 MPV 6.9 L Absolute Neuts (auto) 4.40 Absolute Lymphs (auto) 0.70 L Absolute Monos (auto) 0.30 Absolute Eos (auto) 0.20 Absolute Basos (auto) 0.10 Neutrophils % 77.0 Lymphocytes % 12.7 L Monocytes % 5.9 Eosinophils % 3.2 Basophils % 1.2 Normal RBC Morphology Stain quality accept PT 10.2 INR 1.03 PTT (SP) 25.2 Sodium 140 Potassium 4.4 Chloride 103 Carbon Dioxide 27 Anion Gap 14.4 BUN 20 H Creatinine 0.80 BUN/Creatinine Ratio 25.0 H Random Glucose 116 H Serum Osmolality 283.0 Lactic Acid Calcium 9.1 Total Bilirubin 0.9 AST 23 ALT 16 Alkaline Phosphatase 67 Troponin I Serum Total Protein 7.1 Albumin 3.7 Globulin 3.4 Albumin/Globulin Ratio 1.1 Lipase 31 Urine Color Urine Appearance Urine pH Ur Specific [place] Urine Protein Urine Glucose (UA) Urine Ketones Urine Blood Urine Nitrite Urine Bilirubin Urine Urobilinogen Ur Leukocyte Esterase Urine RBC Urine WBC Ur Epithelial Cells Urine Bacteria 05/18/20 05/18/20 05/18/20 11:16 11:16 11:59 WBC RBC Hgb Hct MCV MCH MCHC RDW Plt Count MPV Absolute Neuts (auto) Absolute Lymphs (auto) Absolute Monos (auto) Absolute Eos (auto) Absolute Basos (auto) Neutrophils % Lymphocytes % Monocytes % Eosinophils % Basophils % Normal RBC Morphology PT INR PTT (SP) Sodium Potassium Chloride Carbon Dioxide Anion Gap BUN Creatinine BUN/Creatinine Ratio Random Glucose Serum Osmolality Lactic Acid 1.4 Calcium Total Bilirubin AST ALT Alkaline Phosphatase Troponin I 0.11 H* Serum Total Protein Albumin Globulin Albumin/Globulin Ratio Lipase Urine Color Yellow Urine Appearance Clear Urine pH 7.0 Ur Specific [place] 1.015 Urine Protein Negative Urine Glucose (UA) Negative Urine Ketones Negative Urine Blood Negative Urine Nitrite Negative Urine Bilirubin Negative Urine Urobilinogen 0.2 Ur Leukocyte Esterase Negative Urine RBC 1-3 Urine WBC 0-1 Ur Epithelial Cells 3-5 Urine Bacteria Rare EXAM DESCRIPTION: Chest,1 View CLINICAL HISTORY: 79 years Female, AMS COMPARISON: Previous study January 26, 2020 TECHNIQUE: AP portable chest. FINDINGS: Heart size is large with centrally prominent pulmonary vascularity. Patchy infiltrate in the right lung base and in the lingula. No pulmonary mass or worrisome nodule. No pneumothorax or pleural effusion. Bones are unremar kable. IMPRESSION: Large heart with prominent central pulmonary arteries. Patchy infiltrate in the lingula and in the right lower lobe. Electronically signed by: Jose Cruz Goodwin MD 05/18/2020 11:49 AM CDT EXAM DESCRIPTION: Abdomen/Pelvis w/Contrast CLINICAL HISTORY: 79 years Female, pain vomiting TECHNIQUE: This exam was performed according to our departmental dose-optimization program, which includes automated exposure control, adjustment of the mA and/or kV according to patient size and/or use of iterative reconstruction technique. COMPARISON: None at time of initial interpretation. FINDINGS: Bibasilar volume loss. No focal consolidation or suspicious pulmonary nodule. The liver is unremarkable. No suspicious hepatic lesion. No biliary dilatation. Cholecystectomy. The portal vein is patent. The spleen, pancreas and adrenal glands are unremarkable. Contrast material in the renal collecting system. Right renal cyst. No hydronephrosis. No urolithiasis. Unremarkable bladder. The uterus is anteverted. No suspicious adnexal lesion. Scattered colonic diverticula without focal inflammatory change. No evidence of bowel obstruction. No findings to suggest appendicitis. No adenopathy. No focal fluid collection. No free air. Normal caliber abdominal aorta. Mild diffuse atherosclerotic disease. No acute or suspicious osseous abnormality. Scattered degenerative changes present. IMPRESSION: No evidence of acute process in the abdomen or pelvis. Electronically signed by: Horace Myrick MD 05/18/2020 12:40 PM CDT EXAM DESCRIPTION: CT head without contrast CLINICAL HISTORY: AMS COMPARISON: Previous CT head January 27, 2020 TECHNIQUE: Noncontrast head CT was performed with routine protocol. FINDINGS: Normal melton-white matter differentiation. Ventricles and sulci are prominent consistent with age-related cerebral volume loss. Low density white matter consistent with chronic microvascular ischemic disease. Compared to the previous study January 27, 2020, the abnormal pattern is stable. 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 Prominent extra-axial CSF spaces. No high density hemorrhage, focal edema or shift of the midline. No sulcal effacement. Normal orbital contents. Basilar cisterns appear clear. Intact calvarium with no fracture or lytic lesion. Normal aeration of tympanic cavities and mastoid air cells. No fluid levels in the paranasal sinuses. Skull base appears intact. Symmetrical internal auditory canals. Sagittal images show markedly osteopenic clivus. Compared to the previous study and december 2019, this same appearance was present. Aggressive osteoporosis is favored over multiple myeloma or metastatic disease of the clivus. Clinical correlation recommended. IMPRESSION: No acute intracranial pathologic process. This exam was performed according to our departmental dose-optimization program, which includes automated exposure control, adjustment of the mA and/or kV according to patient size and/or use of iterative reconstruction technique. Total DLP equals 859.97 mGycm. Electronically signed by: Jose Cruz Goodwin MD 05/18/2020 12:[address] Mota ED Physician at [facility] Accept 01:20pm Departure - Departure Clinical Impression: NSTEMI (non-ST elevated myocardial infarction), Elevated troponin AMS (altered mental status) Qualifiers: Altered mental status type: unspecified Qualified Code(s): R41.82 - Altered mental status, unspecified RLL pneumonia Qualifiers: Pneumonia type: due to unspecified organism Qualified Code(s): J18.9 - Pneumonia, unspecified organism Time of Disposition: 13:21 Disposition: Discharge to Home or Self Care Condition: Fair Departure Forms: ED Discharge - Pt. Copy, Patient Portal Self Enrollment Referrals: RADHA PARRA MD [Primary Care Provider] - 1-2 Weeks Home Medications: Ambulatory Orders Apixaban [Eliquis] 5 mg PO BID 01/08/20 Ascorbic Acid [Vitamin C 500 mg] 1 tab PO DAILY 01/08/20 Donepezil HCl [Aricept] 5 mg PO DAILY 01/08/20 Furosemide 20 mg PO DAILY PRN 01/08/20 Furosemide 40 mg PO DAILY 01/08/20 Hydroxychloroquine Sulfate [Plaquenil] 200 mg PO DAILY 01/08/20 Ibuprofen 800 mg PO Q8H PRN 01/08/20 Lactobacillus [Acidophilus Lactobacilli] 10 mg PO DAILY 01/08/20 Lisinopril 20 mg PO DAILY 01/08/20 Metoprolol Tartrate [Lopressor] 50 mg PO BID 01/08/20 Multiple Vitamins W/ Minerals [Multi Vitamin and Mineral] 1 tab PO DAILY 01/08/20 Potassium Chloride [Potassium Chloride ER] 10 meq PO DAILY PRN 01/08/20 Potassium Chloride [Potassium Chloride ER] 20 meq PO DAILY 01/08/20 Alprazolam [Xanax] 1 mg PO DAILY PRN #7 tab 02/04/20 Quetiapine Fumarate [Seroquel] 50 mg PO BID #30 tab 06/06/20 Transfer to Outside Facility - Transfer Information Decision to Transfer Date: 05/18/20 Decision to Transfer Time: 13:21 Reason for Transfer: specialized care not available Accepting Provider:: Dr. Mota Accepting Facility: [facility]
[2020-05-18 11:02] VITALS: TEMP 97.7
--- NOTE | 2020-05-18 11:51 | RAD ---
EXAM DESCRIPTION: Chest,1 View CLINICAL HISTORY: 79 years Female, AMS COMPARISON: Previous study January 26, 2020 TECHNIQUE: AP portable chest. FINDINGS: Heart size is large with centrally prominent pulmonary vascularity. Patchy infiltrate in the right lung base and in the lingula. No pulmonary mass or worrisome nodule. No pneumothorax or pleural effusion. Bones are unremarkable. IMPRESSION: Large heart with prominent central pulmonary arteries. Patchy infiltrate in the lingula and in the right lower lobe. Electronically signed by: Jose Cruz Goodwin MD 05/18/2020 11:49 AM CDT
--- NOTE | 2020-05-18 12:41 | CT ---
EXAM DESCRIPTION: Abdomen/Pelvis w/Contrast CLINICAL HISTORY: 79 years Female, pain vomiting TECHNIQUE: This exam was performed according to our departmental dose-optimization program, which includes automated exposure control, adjustment of the mA and/or kV according to patient size and/or use of iterative reconstruction technique. COMPARISON: None at time of initial interpretation. FINDINGS: Bibasilar volume loss. No focal consolidation or suspicious pulmonary nodule. The liver is unremarkable. No suspicious hepatic lesion. No biliary dilatation. Cholecystectomy. The portal vein is patent. The spleen, pancreas and adrenal glands are unremarkable. Contrast material in the renal collecting system. Right renal cyst. No hydronephrosis. No urolithiasis. Unremarkable bladder. The uterus is anteverted. No suspicious adnexal lesion. Scattered colonic diverticula without focal inflammatory change. No evidence of bowel obstruction. No findings to suggest appendicitis. No adenopathy. No focal fluid collection. No free air. Normal caliber abdominal aorta. Mild diffuse atherosclerotic disease. No acute or suspicious osseous abnormality. Scattered degenerative changes present. IMPRESSION: No evidence of acute process in the abdomen or pelvis. Electronically signed by: Horace Myrick MD 05/18/2020 12:40 PM CDT
--- NOTE | 2020-05-18 12:46 | CT ---
EXAM DESCRIPTION: CT head without contrast CLINICAL HISTORY: AMS COMPARISON: Previous CT head January 27, 2020 TECHNIQUE: Noncontrast head CT was performed with routine protocol. FINDINGS: Normal melton-white matter differentiation. Ventricles and sulci are prominent consistent with age-related cerebral volume loss. Low density white matter consistent with chronic microvascular ischemic disease. Compared to the previous study January 27, 2020, the abnormal pattern is stable. 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 Prominent extra-axial CSF spaces. No high density hemorrhage, focal edema or shift of the midline. No sulcal effacement. Normal orbital contents. Basilar cisterns appear clear. Intact calvarium with no fracture or lytic lesion. Normal aeration of tympanic cavities and mastoid air cells. No fluid levels in the paranasal sinuses. Skull base appears intact. Symmetrical internal auditory canals. Sagittal images show markedly osteopenic clivus. Compared to the previous study and december 2019, this same appearance was present. Aggressive osteoporosis is favored over multiple myeloma or metastatic disease of the clivus. Clinical correlation recommended. IMPRESSION: No acute intracranial pathologic process. This exam was performed according to our departmental dose-optimization program, which includes automated exposure control, adjustment of the mA and/or kV according to patient size and/or use of iterative reconstruction technique. Total DLP equals 859.97 mGycm. Electronically signed by: Jose Cruz Goodwin MD 05/18/2020 12:45 PM CDT
[2020-05-18] MEDS: DOXYCYCLINE HYCLATE IV 100 MG in SODIUM CHLORIDE 0.9% 250ML 250 ML IVPB ONE (12:56)
[2020-05-18 13:51] VITALS: BP 143/93; O2SAT 93
== END 2020-05-18 13:50 | disposition short-term general hospital (02) ==
LOC: ER 10:35
DX: I21.4 Non-ST elevation (NSTEMI) myocardial infarction (principal); R41.82 Altered mental status, unspecified; J18.9 Pneumonia, unspecified organism; R79.89 Other specified abnormal findings of blood chemistry; J44.9 Chronic obstructive pulmonary disease, unspecified; I10 Essential (primary) hypertension; Z88.2 Allergy status to sulfonamides; Z79.899 Other long term (current) drug therapy; Z87.891 Personal history of nicotine dependence
CPT/HCPCS: 36415; 70450; 71045; 74177; 80053; 81001; 83605; 83690; 84484; 85025; 85610; 85730; 87040; 87635; 93005; J7050

== ENCOUNTER 2020-06-08 12:10 | Emergency (ER) | payer MEDICARE, OTHER ==
--- NOTE | 2020-06-08 13:00 | ED.PDOC ---
History of Present Illness - General Chief Complaint: Behavioral / Psych Stated Complaint: agitated Time Seen by Provider: 06/08/20 12:14 Source: patient, RN notes reviewed, Vital Signs reviewed, EMS notes reviewed, [facility] records Exam Limitations: other - Dementia, not cooperative - History of Present Illness Initial Comments: 80 yo F with known history of mental disorder and dementia is brought in by EMS due to increase aggression. This is not the first time this has happened. NO trauma, no recent fever or illness. Patients came to visit today, when she could not leave with him she started becoming aggressive. She took a bite on inpatient cassidy and spit them at staff. She received 5 mg IM haldol in route. SHe currently is calm, but frustrated. She states if she goes back to the [facility] she will kill herself. She is only oriented to self and situation, not time nor location. She a hx of NSTEMI and pneumonia 2x in the past 6 months. She currently is refusing all care including vitals and blood work. PMH: Hypothyroid, CAD, Afib, RA. Timing/Duration: just prior to arrival Allergies/Adverse Reactions: Allergies Sulfa Drugs Allergy (Verified 05/24/20 15:34) Other Itching Home Medications: Ambulatory Orders Apixaban [Eliquis] 5 mg PO BID 01/08/20 Ascorbic Acid [Vitamin C 500 mg] 1 tab PO DAILY 01/08/20 Donepezil HCl [Aricept] 5 mg PO DAILY 01/08/20 Furosemide 20 mg PO DAILY 01/08/20 Furosemide 20 mg PO DAILY PRN 01/08/20 Hydroxychloroquine Sulfate [Plaquenil] 200 mg PO DAILY 01/08/20 Ibuprofen 800 mg PO Q8H PRN 01/08/20 Lactobacillus [Acidophilus Lactobacilli] 10 mg PO DAILY 01/08/20 Lisinopril 20 mg PO DAILY 01/08/20 Metoprolol Tartrate [Lopressor] 50 mg PO BID 01/08/20 Multiple Vitamins W/ Minerals [Multi Vitamin and Mineral] 1 tab PO DAILY 01/08/20 Potassium Chloride [Potassium Chloride ER] 20 meq PO DAILY 01/08/20 Alprazolam [Xanax] 1 mg PO DAILY PRN #7 tab 02/04/20 Albuterol Sulfate [Proventil Hfa] 90 mcg INH Q6H PRN 06/08/20 Citalopram Hydrobromide [Citalopram] 10 mg PO DAILY 06/08/20 Levothyroxine Sodium 25 mcg PO DAILY 06/08/20 Magnesium Oxide 400 mg PO DAILY 06/08/20 Nitrofurantoin Macrocrystal [Nitrofurantoin Macrocryst] 100 mg PO Q12H 06/08/20 Ondansetron [Ondansetron Odt] 4 mg PO Q6H PRN 06/08/20 Quetiapine Fumarate [Seroquel] 25 mg PO TID 06/08/20 Review of Systems - Review of Systems Constitutional: Denies: chills, fever EENTM: Denies: ear discharge Respiratory: Denies: cough, short of breath Cardiology: Denies: chest pain, palpitations Gastrointestinal/Abdominal: Denies: abdominal pain, diarrhea, nausea, vomiting Genitourinary: Denies: dysuria, hematuria Musculoskeletal: Denies: back pain, muscle pain Neurological: States: see HPI. Denies: headache, numbness, seizure Endocrine: Denies: unexplained weight gain, unexplained weight loss Hematologic/Lymphatic: Denies: easy bleeding, easy bruising Past Medical History (General) - Patient Medical History Hx Seizures: No Hx Stroke: No Hx Dementia: Yes Hx Asthma: No Hx of COPD: Yes Hx Cardiac Disorders: Yes - NSTEMI Hx Congestive Heart Failure: No Hx Pacemaker: No Hx Hypertension: Yes Hx Thyroid Disease: No Hx Diabetes: No Hx Gastroesophageal Reflux: No Hx Renal Disease: No Hx Cancer: No Hx of HIV: No Hx Hepatitis C: No Hx MRSA: No - Vaccination History Hx Tetanus, Diphtheria Vaccination: Yes Hx Influenza Vaccination: Yes Hx Pneumococcal Vaccination: Yes - Social History Hx Tobacco Use: Yes Hx Chewing Tobacco Use: No Hx Alcohol Use: No Hx Substance Use: No Hx Substance Use Treatment: No Hx Depression: No Hx Physical Abuse: No Hx Emotional Abuse: No Hx Suspected Abuse: No - Activities of Daily Living Retirement/Assisted Living (if applicable):: [facility] - Female History Patient : No Family Medical History - Family History Mother Family History: Unknown Living Status: Age at (years of age): 89 Hx Cardiac Disease: Yes - parents Hx Family Cancer: Yes - pancreatic cancer -several family members Hx Family;Other: Rheumatoid arthitis-mom Physical Exam - Physical Exam General Appearance: Alert, Comfortable, No apparent distress, Well Developed, Well Groomed, Well Hydrated, Well Nourished Eyes, Ears, Nose, Throat Exam: PERRL/EOMI, normal ENT inspection, TMs normal Neck: non-tender, full range of motion, supple, normal inspection Respiratory: chest non-tender, lungs clear, normal breath sounds, no respiratory distress, no accessory muscle use Cardiovascular/Chest: normal peripheral pulses, no edema, no gallop, tachycardia, irregularly irregular Peripheral Pulses: radial,right: 2+, radial,left: 2+, dorsalis pedis,right: 2+, dorsalis pedis,left: 2+ Gastrointestinal/Abdominal: normal bowel sounds, non tender, soft, no organomegaly Extremities Exam: non-tender, normal range of motion, no evidence of injury, no edema Neurological: alert, normal mood/affect, calm, precision filer hand II-XII nml as tested, agitated - but not aggresive Behavior/Eye Contact/Speech: avoids eye contact, uncooperative Thoughts/Hallucinations: no apparent hallucination Skin Exam: normal color, warm/dry Progress - Progress Progress: 06/08/20 13:55 partial ddx: ICH, delerium from uti, NSTEMI, CHF, CAD. Patient adamant refusing iv access. called son who is patients POA, who states he wants everything done. With distraction an IV was placed without difficulty. She continues to be in Afib with rvr rate 120-143. Was given total of 15 mg IV diltazem x2. NSTEMI - patient was given asa and started on heparin. Laboratory Results WBC 8.1 K/mm3 (4.8-10.8) 06/08/20 14:21 RBC 4.40 M/mm3 (4.20-5.40) 06/08/20 14:21 Hgb 11.3 gm/dL (12.0-16.0) L 06/08/20 14:21 Hct 34.1 % (36.0-47.0) L 06/08/20 14:21 MCV 77.4 fl (81.0-99.0) L 06/08/20 14:21 MCH 25.7 pg (27.0-31.0) L 06/08/20 14: MCHC 33.2 g/dL (33.0-37.0) 06/08/20 14:21 RDW 18.6 % (11.5-14.5) H 06/08/20 14:21 Plt Count 196 K/mm3 (130-400) 06/08/20 14:21 MPV 8.0 fl (7.40-10.4) 06/08/20 14:21 Absolute Neuts (auto) 6.30 K/uL (1.8-6.8) 06/08/20 14:21 Absolute Lymphs (auto) 1.10 K/uL (1.0-3.4) 06/08/20 14:21 Absolute Monos (auto) 0.50 K/uL (0.2-0.8) 06/08/20 14:21 Absolute Eos (auto) 0.10 K/uL (0.0-0.4) 06/08/20 14:21 Absolute Basos (auto) 0.10 K/uL (0.0-0.1) 06/08/20 14:21 Neutrophils % 77.0 % (42.0-78.0) 06/08/20 14:21 Lymphocytes % 13.7 % (20.0-50.0) L 06/08/20 14:21 Monocytes % 6.7 % (2.0-9.0) 06/08/20 14:21 Eosinophils % 1.6 % (1.0-5.0) 06/08/20 14:21 Basophils % 1.0 % (0.0-2.0) 06/08/20 14:21 PT 10.4 SECONDS (9.0-10.9) 06/08/20 14:21 INR 1.05 (0.9-1.15) 06/08/20 14:21 PTT (SP) 25.0 SECONDS (21.8-31.6) 06/08/20 14:21 Sodium 139 mmol/L (135-145) 06/08/20 14:21 Potassium 4.1 mmol/L (3.6-5.0) 06/08/20 14:21 Chloride 107 mmol/L (101-111) 06/08/20 14:21 Carbon Dioxide 23 mmol/L (21-31) 06/08/20 14:21 Anion Gap 13.1 (12-18) 06/08/20 14:21 BUN 28 mg/dL (7-18) H 06/08/20 14:21 Creatinine 0.81 mg/dL (0.6-1.3) 06/08/20 14:21 BUN/Creatinine Ratio 34.6 (10-20) H 06/08/20 14:21 Random Glucose 119 mg/dL (70-105) H 06/08/20 14:21 Serum Osmolality 284.2 mOsm/L (275-295) 06/08/20 14:21 Calcium 8.7 mg/dL (8.4-10.2) 06/08/20 14:21 Magnesium 1.8 mg/dL (1.8-2.5) 06/08/20 14:21 Total Bilirubin 0.7 mg/dL (0.2-1.0) 06/08/20 14:21 AST 31 IU/L (10-42) 06/08/20 14:21 ALT 20 IU/L (10-60) 06/08/20 14:21 Alkaline Phosphatase 59 IU/L (42-121) 06/08/20 14:21 Troponin I 0.26 ng/mL (0.01-0.05) H* 06/08/20 14:21 Serum Total Protein 6.6 gm/dL (6.4-8.2) 06/08/20 14:21 Albumin 3.5 g/dl (3.2-5.5) 06/08/20 14:21 Globulin 3.1 gm/dL (2.3-3.5) 06/08/20 14:21 Albumin/Globulin Ratio 1.1 (1.1-1.9) 06/08/20 14:21 TSH 6.27 uIU/mL (0.34-5.60) H 06/08/20 14:21 06/08/20 17:33 - Results/Orders Results/Orders: The data reviewed when caring for this patient included: nurse notes, prior records, ems etc. The history and assessments from nurses notes were reviewed and considered, and the patient's home medication list was also reviewed and considered. My assessment and the results of testing completed here in the ED were discussed with the patient son Cristobal. He states patient is a full code. Socorro Contreras DO #801 - EKG/XRAY/CT EKG: Atrial, Tachy, Fibrillation Comments: LAFB, nonspecific st changes, no stemi. Afib with rvr XRAY: chest - cardiomeagly with pulmonary congestion and atelectasis. CT: Head without shows no ICH, no acute pathology, atrophy noted. CT Ordered: No CT Interpretation Call Back: No Departure - Departure Clinical Impression: Atrial fibrillation with rapid ventricular response, NSTEMI (non-ST elevated myocardial infarction) Dementia Qualifiers: Dementia type: unspecified type Dementia behavioral disturbance: with behavioral disturbance Qualified Code(s): F03.91 - Unspecified dementia with behavioral disturbance Time of Disposition: 15:00 Disposition: Transfer to Hospital Departure Forms: ED Discharge - Pt. Copy, Patient Portal Self Enrollment Instructions: DI for Psychosis Referrals: RADHA PARRA MD [Primary Care Provider] - 1-2 Weeks Home Medications: Ambulatory Orders Apixaban [Eliquis] 5 mg PO BID 01/08/20 Ascorbic Acid [Vitamin C 500 mg] 1 tab PO DAILY 01/08/20 Donepezil HCl [Aricept] 5 mg PO DAILY 01/08/20 Furosemide 20 mg PO DAILY 01/08/20 Furosemide 20 mg PO DAILY PRN 01/08/20 Hydroxychloroquine Sulfate [Plaquenil] 200 mg PO DAILY 01/08/20 Ibuprofen 800 mg PO Q8H PRN 01/08/20 Lactobacillus [Acidophilus Lactobacilli] 10 mg PO DAILY 01/08/20 Lisinopril 20 mg PO DAILY 01/08/20 Metoprolol Tartrate [Lopressor] 50 mg PO BID 01/08/20 Multiple Vitamins W/ Minerals [Multi Vitamin and Mineral] 1 tab PO DAILY 01/08/20 Potassium Chloride [Potassium Chloride ER] 20 meq PO DAILY 01/08/20 Alprazolam [Xanax] 1 mg PO DAILY PRN #7 tab 02/04/20 Albuterol Sulfate [Proventil Hfa] 90 mcg INH Q6H PRN 06/08/20 Citalopram Hydrobromide [Citalopram] 10 mg PO DAILY 06/08/20 Levothyroxine Sodium 25 mcg PO DAILY 06/08/20 Magnesium Oxide 400 mg PO DAILY 06/08/20 Nitrofurantoin Macrocrystal [Nitrofurantoin Macrocryst] 100 mg PO Q12H 06/08/20 Ondansetron [Ondansetron Odt] 4 mg PO Q6H PRN 06/08/20 Quetiapine Fumarate [Seroquel] 25 mg PO TID 06/08/20 Transfer to Outside Facility - Transfer Information Decision to Transfer Date: 06/08/20 Decision to Transfer Time: 14:53 Reason for Transfer: specialized care not available Accepting Facility: [facility]
--- NOTE | 2020-06-08 14:13 | RAD ---
EXAM DESCRIPTION: Chest,1 View CLINICAL HISTORY: 80 years Female, ams COMPARISON: Previous chest x-ray May 18, 2020 TECHNIQUE: AP portable chest. FINDINGS: Heart size is large with centrally increased pulmonary vascularity. No consolidating infiltrate. Linear scarring or discoid atelectasis in the lingula and in the right lower lobe above the diaphragm. These findings were present on previous study. No pulmonary mass or worrisome nodule. No pneumothorax or pleural effusion. Bones are osteoporotic. IMPRESSION: Large heart with centrally prominent pulmonary vessels. Bibasilar discoid atelectasis or linear scarring. Electronically signed by: Jose Cruz Goodwin MD 06/08/2020 2:11 PM CDT
--- NOTE | 2020-06-08 14:17 | CT ---
EXAM DESCRIPTION: Head CT without contrast CLINICAL HISTORY: AGITATION COMPARISON: None available TECHNIQUE: Noncontrast head CT was performed with routine protocol. FINDINGS: Normal melton-white matter differentiation. Ventricles and sulci are prominent consistent with age-related cerebral volume loss. Low density white matter indicates chronic microvascular ischemic disease, confluent in appearance. Pattern is unchanged compared to previous study May 18, 2020. Small lacunar infarcts in the basal ganglial, thalamic and external capsular regions. Old lacunar infarct in the right lateral genna. No high density hemorrhage, focal edema or shift of the midline. No sulcal effacement. Normal orbital contents. Basilar cisterns appear clear. Intact calvarium with no fracture or lytic lesion. Normal aeration of tympanic cavities and mastoid air cells. No fluid levels in the paranasal sinuses. Skull base appears intact. Symmetrical internal auditory canals. IMPRESSION: No acute intracranial pathologic process. This exam was performed according to our departmental dose-optimization program, which includes automated exposure control, adjustment of the mA and/or kV according to patient size and/or use of iterative reconstruction technique. Total DLP equals 859.97 mGycm. Electronically signed by: Jose Cruz Goodwin MD 06/08/2020 2:14 PM CDT
[2020-06-08] MEDS ORDERED: ASPIRIN (CHEWABLE) 81 MG TAB PO ONE (14:51)
[2020-06-08] MEDS ORDERED: HEPARIN SODIUM (PORCINE) 5,000 U/ML VIAL IV ONE (14:58)
[2020-06-08] MEDS ORDERED: HEPARIN PREMIX 25,000 UNITS in PREMIX BAG 1 BAG IVS SCH (15:00)
[2020-06-08 19:04] VITALS: BP 96/61; TEMP 97; O2SAT 95
== END 2020-06-08 16:06 | disposition short-term general hospital (02) ==
LOC: ER 12:10
DX: I21.4 Non-ST elevation (NSTEMI) myocardial infarction (principal); I48.91 Unspecified atrial fibrillation; F03.91 Unspecified dementia, unspecified severity, with behavioral disturbance; R00.0 Tachycardia, unspecified; R45.1 Restlessness and agitation; I10 Essential (primary) hypertension; I25.2 Old myocardial infarction; J44.9 Chronic obstructive pulmonary disease, unspecified; E03.9 Hypothyroidism, unspecified; I25.10 Atherosclerotic heart disease of native coronary artery without angina pectoris; M06.9 Rheumatoid arthritis, unspecified; Z79.899 Other long term (current) drug therapy; Z79.01 Long term (current) use of anticoagulants; Z88.2 Allergy status to sulfonamides; Z87.891 Personal history of nicotine dependence
CPT/HCPCS: 36415; 70450; 71045; 80053; 83735; 84443; 84484; 85025; 85610; 85730; 93005; J1644

== ENCOUNTER 2020-06-27 00:05 | Observation (INO) | payer MEDICARE, OTHER ==
[2020-06-27] MEDS ORDERED: IPRATROPIUM/ALBUTEROL 3 ML VIAL NEB ONE (00:13)
[2020-06-27] MEDS ORDERED: SODIUM CHLORIDE 0.9% 1000ML 500 ML IVS ONE ×2 (00:13→02:26)
--- NOTE | 2020-06-27 00:48 | RAD ---
EXAM DESCRIPTION: Chest,1 View CLINICAL HISTORY: sob, weeak COMPARISON: Chest x-ray 06/08/2020. TECHNIQUE: Single frontal view of the chest. FINDINGS: Lung volumes adequate. Cardiac silhouette is enlarged, unchanged. No pneumothorax or large pleural effusion. Unchanged bibasilar predominant reticular airspace disease. IMPRESSION: 1. No acute chest findings. 2. Mildly enlarged cardiac silhouette, unchanged. 3. Unchanged bibasilar predominant reticular airspace disease, likely scarring/atelectasis. However superimposed atypical infectious process not entirely excluded. Electronically signed by: Cecil Millan MD 06/27/2020 12:47 AM CDT
--- NOTE | 2020-06-27 01:07 | CT ---
EXAM: Head HISTORY: 80 years Female weakness, bradycardia, recent falls COMPARISON: None TECHNIQUE: Contiguous axial images of the head were obtained from the skull base through the vertex without IV contrast followed by multiplanar reformats. This exam was performed according to our departmental dose-optimization program, which includes automated exposure control, adjustment of the mA and/or kV according to patient size and/or use of iterative reconstruction technique. FINDINGS: Generalized parenchymal volume loss. No hydrocephalus. No midline shift, mass effect or abnormal extraaxial collection. No acute intracranial hemorrhage or infarct. Chronic microangiopathic ischemic white matter changes. Orbital contents are unremarkable. The paranasal sinuses and mastoid air cells are well pneumatized. No acute calvarial abnormality. IMPRESSION: 1. No acute intracranial pathology. Electronically signed by: Zeferino Torres MD 06/27/2020 1:05 AM CDT
[2020-06-27] MEDS ORDERED: LEVOTHYROXINE SODIUM 0.075 MG TAB PO ONE (02:04)
[2020-06-27] MEDS ORDERED: ALBUTEROL SULFATE 2.5 MG/3 ML VIAL NEB ONE (02:26)
--- NOTE | 2020-06-27 02:49 | ED.PDOC ---
History of Present Illness - General Chief Complaint: Trauma Stated Complaint: fall due to weakness Time Seen by Provider: 06/27/20 00:05 Source: patient, EMS, [facility] records Exam Limitations: no limitations - History of Present Illness Initial Comments: The patient is a 80-year-old female brought in from the [facility] secondary to mild altered mental status, generalized weakness, inability to stand and nausea associated with it. Patient reports that the symptoms started earlier in the afternoon today. She did receive her evening medications. The patient was seen here several weeks ago with new onset atrial fibrillation with rapid ventricular rate. She was apparently sent back with amiodarone and increased doses of metoprolol as well as increased doses of diuretics. The patient started feeling a little weaker a couple of days ago. The patient is pale upon arrival. She does know where she is and what is going on though her speech is a little bit slurred and she is pale and drowsy. Blood pressures are 80s over 40s and heart rate is 35 to 40 bpm with a sinus bradycardia with occasional escape beats. The patient denies any chest pain. Oxygen saturations are in the high 80s initially on pulse oximetry however that may be related to low blood pressure. Extremities were fairly clammy initially. The patient does have chronic dry rales throughout secondary to COPD. These abnormalities did improve with improvement of blood pressure. Timing/Duration: unsure, 4-6 hours - May be longer Severity: severe Improving Factors: other - Lying back Worsening Factors: other - Sitting up or trying to stand Associated Symptoms: loss of appetite, malaise, nausea/vomiting, weakness Allergies/Adverse Reactions: Allergies Sulfa Drugs Allergy (Verified 06/27/20 00:47) Other Itching Home Medications: Ambulatory Orders Apixaban [Eliquis] 5 mg PO BID 01/08/20 Ascorbic Acid [Vitamin C 500 mg] 1 tab PO DAILY 01/08/20 Donepezil HCl [Aricept] 5 mg PO DAILY 01/08/20 Furosemide 20 mg PO DAILY 01/08/20 Furosemide 20 mg PO DAILY PRN 01/08/20 Hydroxychloroquine Sulfate [Plaquenil] 200 mg PO DAILY 01/08/20 Ibuprofen 800 mg PO Q8H PRN 01/08/20 Lactobacillus [Acidophilus Lactobacilli] 10 mg PO DAILY 01/08/20 Lisinopril 20 mg PO DAILY 01/08/20 Metoprolol Tartrate [Lopressor] 75 mg PO BID 01/08/20 Multiple Vitamins W/ Minerals [Multi Vitamin and Mineral] 1 tab PO DAILY 01/08/20 Potassium Chloride [Potassium Chloride ER] 20 meq PO DAILY 01/08/20 Alprazolam [Xanax] 1 mg PO DAILY PRN #7 tab 02/04/20 Albuterol Sulfate [Proventil Hfa] 90 mcg INH Q6H PRN 06/08/20 Citalopram Hydrobromide [Citalopram] 10 mg PO DAILY 06/08/20 Levothyroxine Sodium 25 mcg PO DAILY 06/08/20 Magnesium Oxide 400 mg PO DAILY 06/08/20 Nitrofurantoin Macrocrystal [Nitrofurantoin Macrocryst] 100 mg PO Q12H 06/08/20 Ondansetron [Ondansetron Odt] 4 mg PO Q6H PRN 06/08/20 Quetiapine Fumarate [Seroquel] 25 mg PO TID 06/08/20 Amiodarone HCl [Amiodarone Hydrochloride] 100 mg PO DAILY 06/27/20 Apixaban [Eliquis] 2.5 mg PO BID 06/27/20 Aspirin [Aspirin 81 Low Dose] 81 mg PO DAILY 06/27/20 Cyanocobalamin [B12] 1,000 mcg PO DAILY 06/27/20 Lactobacillus [Acidophilus] 10 mg PO DAILY 06/27/20 Review of Systems - Review of Systems Constitutional: States: malaise, weakness - Generalized EENTM: States: no symptoms reported Respiratory: States: short of breath - With exertion Cardiology: States: other - Near syncope with standing Gastrointestinal/Abdominal: States: no symptoms reported Genitourinary: States: no symptoms reported Musculoskeletal: States: no symptoms reported Skin: States: no symptoms reported Neurological: States: see HPI Endocrine: States: no symptoms reported All other Systems: No Change from Baseline Past Medical History (General) - Patient Medical History Hx Seizures: No Hx Stroke: No Hx Dementia: Yes Hx Asthma: No Hx of COPD: Yes Hx Cardiac Disorders: Yes - NSTEMI Hx Congestive Heart Failure: No Hx Pacemaker: No Hx Hypertension: Yes Hx Thyroid Disease: No Hx Diabetes: No Hx Gastroesophageal Reflux: No Hx Renal Disease: No Hx Cancer: No Hx of HIV: No Hx Hepatitis C: No Hx MRSA: No - Vaccination History Hx Tetanus, Diphtheria Vaccination: Yes Hx Influenza Vaccination: Yes Hx Pneumococcal Vaccination: Yes - Social History Hx Tobacco Use: Yes Hx Chewing Tobacco Use: No Hx Alcohol Use: No Hx Substance Use: No Hx Substance Use Treatment: No Hx Depression: No Hx Physical Abuse: No Hx Emotional Abuse: No Hx Suspected Abuse: No - Activities of Daily Living Correction/Assisted Living (if applicable):: Sanket Chand - Female History Patient : No Family Medical History - Family History Mother Family History: Unknown Living Status: Age at (years of age): 89 Hx Cardiac Disease: Yes - parents Hx Family Cancer: Yes - pancreatic cancer -several family members Hx Family;Other: Rheumatoid arthitis-mom Physical Exam - Physical Exam General Appearance: Other - The patient is drowsy, pale and frail Eye Exam: bilateral normal Ears, Nose, Throat: hearing grossly normal, normal pharynx - Mucous membranes are mildly dry Respiratory: no respiratory distress, no accessory muscle use, rales - Scattered chronic Cardiovascular/Chest: no edema, bradycardia Peripheral Pulses: radial,right: 1+ - Improved with improvement in blood pressure, radial,left: 1+ - Improved with improvement in blood pressure Gastrointestinal/Abdominal: non tender, soft Rectal Exam: deferred Back Exam: no CVA tenderness, no vertebral tenderness Extremity: normal range of motion, non-tender, normal inspection, no pedal edema, no calf tenderness, normal capillary refill - Borderline 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 This does correct with improvement of blood pressure. Skin Exam: pallor Comments: Vital Signs - 24 hr 06/27/20 06/27/20 06/27/20 00:15 00:25 00:43 Temperature 97 F L Pulse Rate 46 L 54 L Pulse Rate [ 43 L 43 L left] Respiratory 16 19 18 Rate Blood Pressure 88/50 102/84 [left] O2 Sat by Pulse 100 100 94 L Oximetry 06/27/20 06/27/20 01:36 02:14 Temperature 97.5 F L Pulse Rate 46 L 46 L Pulse Rate [ 45 L 46 L left] Respiratory 18 18 Rate Blood Pressure 110/82 109/72 [left] O2 Sat by Pulse 98 87 L Oximetry Progress - Progress Progress: 06/27/20 02:51 EKG shows sinus bradycardia with escape beats at 45 bpm. Poor R wave progression anterior leads. Left axis deviation. No definitive ST segment elevation or depression indicative of acute focal ischemia. Normal corrected QT interval. Aside from the bradycardia, this is consistent with a previous EKG from several months ago. Chest x-ray shows numerous chronic findings consistent with emphysema and cardiomegaly. See report for details. No obvious new infiltrates. Head CT shows chronic changes only. No evidence of any hemorrhage or hydrocephalus. No evidence of acute trauma. Laboratory Tests 06/27/20 06/27/20 06/27/20 00:34 00:34 00:34 WBC 9.0 RBC 4.25 Hgb 11.1 L Hct 33.5 L MCV 78.9 L MCH 26.0 L MCHC 33.0 RDW 17.9 H Plt Count 260 MPV 8.1 Absolute Neuts (auto) 7.40 H Absolute Lymphs (auto) 1.10 Absolute Monos (auto) 0.30 Absolute Eos (auto) 0.10 Absolute Basos (auto) 0.00 Neutrophils % 82.3 H Lymphocytes % 12.2 L Monocytes % 3.8 Eosinophils % 1.2 Basophils % 0.5 PT 12.2 H INR 1.23 H PTT (SP) 25.8 D-Dimer, Quantitative 179.0 Sodium 135 Potassium 4.7 Chloride 100 L Carbon Dioxide 19 L Anion Gap 20.7 H BUN 33 H Creatinine 1.26 BUN/Creatinine Ratio 26.2 H Random Glucose 178 H Serum Osmolality 281.8 Lactic Acid Calcium 8.5 Magnesium 1.9 Total Bilirubin 1.0 AST 59 H ALT 65 H Alkaline Phosphatase 66 Creatine Kinase 57 CK-MB (CK-2) 5.6 H* CK-MB (CK-2) % Not Reportable Troponin I 0.09 H* B-Natriuretic Peptide 1040.0 H* Serum Total Protein 6.4 Albumin 3.5 Globulin 2.9 Albumin/Globulin Ratio 1.2 TSH 14.02 H Urine Color Urine Appearance Urine pH Ur Specific [place] Urine Protein Urine Glucose (UA) Urine Ketones Urine Blood Urine Nitrite Urine Bilirubin Urine Urobilinogen Ur Leukocyte Esterase Urine RBC Urine WBC Ur Epithelial Cells Amorphous Sediment Urine Bacteria 06/27/20 06/27/20 00:34 02:18 WBC RBC Hgb Hct MCV MCH MCHC RDW Plt Count MPV Absolute Neuts (auto) Absolute Lymphs (auto) Absolute Monos (auto) Absolute Eos (auto) Absolute Basos (auto) Neutrophils % Lymphocytes % Monocytes % Eosinophils % Basophils % PT INR PTT (SP) D-Dimer, Quantitative Sodium Potassium Chloride Carbon Dioxide Anion Gap BUN Creatinine BUN/Creatinine Ratio Random Glucose Serum Osmolality Lactic Acid 4.2 H* Calcium Magnesium Total Bilirubin AST ALT Alkaline Phosphatase Creatine Kinase CK-MB (CK-2) CK-MB (CK-2) % Troponin I B-Natriuretic Peptide Serum Total Protein Albumin Globulin Albumin/Globulin Ratio TSH Urine Color Dk yellow H Urine Appearance Sl cloudy Urine pH 5.5 Ur Specific [place] >= 1.030 Urine Protein 100 H Urine Glucose (UA) Negative Urine Ketones Negative Urine Blood Negative Urine Nitrite Negative Urine Bilirubin Negative Urine Urobilinogen 0.2 Ur Leukocyte Esterase Negative Urine RBC 0 Urine WBC 1-3 Ur Epithelial Cells 5-10 Amorphous Sediment 1+ Urine Bacteria 1+ 06/27/20 02:53 Assessment and plan: The patient is a 80-year-old female presents emergency room essentially in cardiogenic shock most likely due to medications used to treat her atrial fibrillation and congestive heart failure. Amiodarone and metoprolol as well as diuretics are being held for now. The patient is receiving a liter of IV fluids and blood pressures are improving significantly. The patient's mentation is going back to normal she is feeling much better. The patient received 3 nebulizer treatments with albuterol and heart rates have stabilized between 45 and 50 bpm in a sinus bradycardia pattern. She is breathing more easily. Oxygen saturations are greater than 90% on room air though for now we will keep her on supplemental oxygen. She may need more breathing treatments every few hours through the night until the metoprolol wears off more. The patient has a significant lactic acidosis no doubt due to the initial hypotension, however we are rehydrating very gently as the patient will fluid overload very easily. The patient has a slight troponin bump which is not surprising given the global hypoperfusion. The patient is not having any chest pain. The EKG is reassuring. This will simply need to be followed. The patient is already on Eliquis. The patient is not a good candidate for cardiac intervention given her numerous longstanding medical problems. Again I do not believe the mildly elevated troponin is from focal coronary ischemia, but rather global hypoxia from hypoperfusion from low blood pressure due to the metoprolol, amiodarone and hypovolemia from the diuretics. The patient's TSH is significantly more elevated than it was a few weeks ago. She did receive a dose of Synthroid here tonight. This may be due to the changes from the amiodarone. This will need to be followed closely prevent further complications from this interaction. For now we are avoiding dopamine, atropine, epinephrine and glucagon as means of raising the heart rate and blood pressure. The risk of having an unpredictable reaction between these medications and the medications that she already has on board is felt to be fairly high. For the moment, it seems safer to provide the above measures and let the medications wear off. we are admitting the patient for further monitoring and medication adjustments. shaan sanchez [id number] Critical care time spent on this patient is 40 minutes excluding otherwise billable procedures. 06/27/20 02:58 Departure - Departure Clinical Impression: Cardiogenic shock, Lactic acidosis Disposition: Admit Patient Condition: Poor Departure Forms: ED Discharge - Pt. Copy, Patient Portal Self Enrollment Referrals: RADHA PARRA MD [Primary Care Provider] - 1-2 Weeks Home Medications: Ambulatory Orders Apixaban [Eliquis] 5 mg PO BID 01/08/20 Ascorbic Acid [Vitamin C 500 mg] 1 tab PO DAILY 01/08/20 Donepezil HCl [Aricept] 5 mg PO DAILY 01/08/20 Furosemide 20 mg PO DAILY 01/08/20 Furosemide 20 mg PO DAILY PRN 01/08/20 Hydroxychloroquine Sulfate [Plaquenil] 200 mg PO DAILY 01/08/20 Ibuprofen 800 mg PO Q8H PRN 01/08/20 Lactobacillus [Acidophilus Lactobacilli] 10 mg PO DAILY 01/08/20 Lisinopril 20 mg PO DAILY 01/08/20 Metoprolol Tartrate [Lopressor] 75 mg PO BID 01/08/20 Multiple Vitamins W/ Minerals [Multi Vitamin and Mineral] 1 tab PO DAILY 01/08/20 Potassium Chloride [Potassium Chloride ER] 20 meq PO DAILY 01/08/20 Alprazolam [Xanax] 1 mg PO DAILY PRN #7 tab 02/04/20 Albuterol Sulfate [Proventil Hfa] 90 mcg INH Q6H PRN 06/08/20 Citalopram Hydrobromide [Citalopram] 10 mg PO DAILY 06/08/20 Levothyroxine Sodium 25 mcg PO DAILY 06/08/20 Magnesium Oxide 400 mg PO DAILY 06/08/20 Nitrofurantoin Macrocrystal [Nitrofurantoin Macrocryst] 100 mg PO Q12H 06/08/20 Ondansetron [Ondansetron Odt] 4 mg PO Q6H PRN 06/08/20 Quetiapine Fumarate [Seroquel] 25 mg PO TID 06/08/20 Amiodarone HCl [Amiodarone Hydrochloride] 100 mg PO DAILY 06/27/20 Apixaban [Eliquis] 2.5 mg PO BID 06/27/20 Aspirin [Aspirin 81 Low Dose] 81 mg PO DAILY 06/27/20 Cyanocobalamin [B12] 1,000 mcg PO DAILY 06/27/20 Lactobacillus [Acidophilus] 10 mg PO DAILY 06/27/20 Decision To Admit - Decistion To Admit Decision to Admit Reason: Medical Nature Decision to Admit Date: 06/27/20 Decision to Admit Time: 02:58
--- NOTE | 2020-06-27 03:47 | HP ---
SUPERVISING PHYSICIAN: Neil Diop MD CHIEF COMPLAINT: Fall due to weakness. HISTORY OF PRESENT ILLNESS: Ms. Davis is an 80-year-old female patient who was brought to the Emergency Room from [facility] via EMS secondary to some mild altered mental status with some generalized weakness and inability to stand. The patient has a history of dementia and is not a very good historian. She does note her symptoms started earlier in the day. Her history notes reveal that several weeks ago she was in the Emergency Room for new onset of atrial fibrillation and rapid ventricular response and was treated in [place] and discharged on amiodarone with an increased dose of metoprolol as well as her diuretics. The patient started feeling a little weaker a few days ago. Her initial blood pressure in the Emergency Room was 80/60 with heart rate 43, saturation 100% on room air. She was given a little fluids given her labs that showed she had an elevated BNP at 1040. Troponin was a little elevated at 0.09. Creatinine 1.26. Initial lactic acid was 4.2. After fluids repeated it was 3.3. Urinalysis showed 100 protein, otherwise within normal limits. She had a nasal swab for COVID-19 that was negative. After fluids, her blood pressure did improve and she was up to 109/72, saturation 97% on room air. Heart rate was still in the 40s at 46. She did have a reported fall in heart rate which could related to medication and fluid and amiodarone and the increasing metoprolol. Dr. Kahn felt her symptomatology is related to medications and requested the patient be placed in observation for further workup and evaluation. Past medical records were reviewed to get her history. PAST MEDICAL HISTORY: 1. Hyperlipidemia. 2. Hypertension. 3. Dementia. PAST SURGICAL HISTORY: 1. Gallbladder. HOME MEDICATIONS: We are awaiting an updated list of medications from the residential. ALLERGIES: SULFA DRUGS. FAMILY HISTORY: Unknown and noncontributory. SOCIAL HISTORY: The patient is currently . She has 4 children. She currently resides at [facility] due to advanced dementia. She does have a history of smoking and currently smokes approximately half pack a day. She denies any alcohol or illicit drug use. REVIEW OF SYSTEMS: CONSTITUTIONAL: Positive for general malaise and weakness as noted in history of present illness. HEENT: Negative for headaches, sore throats, earaches, nasal congestion, vision changes. RESPIRATORY: As noted, some shortness of breath associated with exertion. No wheezing. CARDIOVASCULAR: As noted in history of present illness, near syncopal episode with standing. Denies chest pain, palpitations or syncopal episodes other than the one reported on this admission. GASTROINTESTINAL: Negative for nausea, vomiting, diarrhea, constipation or abdominal pain. GENITOURINARY: Negative for dysuria, hematuria, polyuria. MUSCULOSKELETAL: Generalized weakness with no reported arthralgias, joint swelling. SKIN: Negative for lesions, rashes, moles or unexplained changes. NEUROLOGIC: See history of present illness. HEMATOLOGIC: Negative for easy bruising, unexplained bleeding or transfusion reactions. PHYSICAL EXAMINATION: VITAL SIGNS: Initially in the Emergency Room on admission, blood pressure 88/50, respirations 18, saturation 100% on 2 liters nasal cannula with heart rate 43. After some fluids in the Emergency Room and on admission to the Medical/Surgical Floor, the patient's blood pressure was 112/79, respirations 18, saturation 97% on 2 liters nasal cannula. GENERAL: The patient looks tired and frail. She is alert. She does not look to be in any acute distress. HEENT: Tympanic membranes clear bilaterally. Oropharynx is pink with notably dry mucous membranes. No lesions. RESPIRATORY: Lungs clear to auscultation, but diminished towards the bases. No appreciable rhonchi, wheezes or rales. CARDIOVASCULAR: Bradycardic rhythm on monitor. No appreciable murmurs, gallops, or rubs. RECTAL: Deferred. BACK: No CVA or vertebral tenderness. EXTREMITIES: There is no cyanosis, clubbing or edema. NEUROLOGIC: Cranial nerves II-XII are grossly intact. She is noted to have some chronic vision loss. The patient is alert and oriented times three. SKIN: Pale and dry. LABORATORY: White count 9,000, hemoglobin 11.1, hematocrit 33.5, platelet count 260,000. Differential does show a left shift. Coagulation studies show PT 12.2, PTT 25.5, D-dimer 179. Chemistries showed CO2 low at 19, anion gap elevated at 20, BUN 33, creatinine 1.26. Lactic acid 4.2, after fluids in the ER and prior to admission, lactic acid was down to 3.3. Two troponins in the ER were elevated at 0.9. AST elevated at 69, ALT 65. TSH elevated at 14.0. MICROBIOLOGY: Nasal swab for COVID was negative. RADIOLOGY: Chest x-ray per radiologic interpretation showed no acute chest findings, mildly enlarged cardiac silhouette, unchanged. Unchanged basilar prominent reticular airspace disease, likely scar versus atelectasis, however, superimposed atypical infectious process not entirely excluded. 12-lead EKG shows bradycardia with a few escape beats at 45 beats per minute. R-wave progression was poor in anterior leads. No definite ST segment elevation or depression to indicate acute focal ischemia with QT interval corrected to normal levels when compared to previous EKGs, no significant changes other than rate. Chest x-ray showed numerous chronic findings consistent with emphysema, cardiomegaly. No obvious new infiltrates. CT of the head per radiologic interpretation showed no acute intracranial pathology. ASSESSMENT: 1. Hypotension with associated bradycardia, etiology uncertain. 2. Lactic acidosis associate with #1, unable to fully rule out infectious process to include possible developing pneumonia. 3. Elevated troponin level with no mention of significant EKG changes or chest pains on arrival. 4. Elevated transaminases, etiology uncertain at this point. PLAN: Ms. Davis is going to be admitted for continuation of workup for acute lactic acidosis and associated symptomatic bradycardia. Chest x-ray shows little questionable area of possible developing pneumonia, therefore, she will be started on treatment with azithromycin and Rocephin. She is already on Xopenex breathing treatments at the residential. We will recheck her lab levels including lactic acid and replace fluids as needed, but we will also await echocardiogram given that she had such an elevated BNP with no mention of formal congestive heart failure in her history. As far as the elevated troponins, we will follow those closely. At this point, the patient does not seem to have any chest pain related to that. We will continue to monitor and treat as needed. I anticipate her length of stay to be at least 2 to 3 days. Until the patient can transition to outpatient management, we will continue to monitor and treat as needed. #[id number] [facility]
[2020-06-27] MEDS ORDERED: SODIUM CHLORIDE 0.9% 500ML 500 ML IVS ONE (05:04)
[2020-06-27] MEDS ORDERED: ALBUTEROL SULFATE 2.5 MG/3 ML VIAL NEB PRN (05:05)
[2020-06-27] MEDS ORDERED: ONDANSETRON INJ 4 MG/2 ML VIAL IV PRN (05:05)
[2020-06-27] MEDS ORDERED: SODIUM CHLORIDE 0.9% (FLUSH) 10 ML SYG IV PRN (05:05)
[2020-06-27] MEDS ORDERED: IV SET AND CAP CHANGE INJ INJ SCH (05:30)
[2020-06-27] MEDS: PANTOPRAZOLE SODIUM IV 40 MG VIAL IV SCH (05:35)
[2020-06-27] MEDS: IPRATROPIUM/ALBUTEROL 3 ML VIAL INH SCH ×4 (07:08→20:04)
[2020-06-27] MEDS ORDERED: CITALOPRAM HYDROBROMIDE 10 MG PO SCH (11:15)
[2020-06-27] MEDS: NON-FORMULARY MEDICATION 1 EA MIS (Hydroxychloroquine Sulfate [Plaquenil] 200 MG) PO SCH (12:08)
[2020-06-27] MEDS: APIXABAN 5 MG TAB PO SCH ×2 (12:09→21:45)
[2020-06-27] MEDS: CITALOPRAM HBR 20 MG TAB PO SCH (12:09)
[2020-06-27] MEDS: cefTRIAXone SODIUM 1 GM in SODIUM CHL 0.9% 50ML MIN-BAG+ 50 ML IVPB SCH (12:12)
[2020-06-27] MEDS: DOXYCYCLINE HYCLATE IV 100 MG in SODIUM CHLORIDE 0.9% 250ML 250 ML IVPB SCH ×2 (12:57→23:40)
[2020-06-27] MEDS: QUEtiapine FUMARATE 25 MG TAB PO SCH ×2 (17:38→21:05)
[2020-06-27] MEDS ORDERED: DEX 5% W/NACL 0.45% 1000ML 1,000 ML IVS PRN (18:53)
[2020-06-28] MEDS: PANTOPRAZOLE SODIUM IV 40 MG VIAL IV SCH (06:22)
[2020-06-28] MEDS: IPRATROPIUM/ALBUTEROL 3 ML VIAL INH SCH ×4 (08:40→19:35)
[2020-06-28] MEDS ORDERED: FUROSEMIDE 40 MG TAB PO SCH (09:00)
[2020-06-28] MEDS ORDERED: NON-FORMULARY MEDICATION 1 EA MIS (Furosemide [Furosemide] 20 MG) PO SCH (09:00)
--- NOTE | 2020-06-28 09:27 | CT ---
EXAM DESCRIPTION: Chest w/o Contrast CLINICAL HISTORY: AMS; lactic acidosis COMPARISON: Chest radiograph 06/27/2020 TECHNIQUE: Multiple axial images of the chest without contrast. Multiplanar reconstructions were provided. This exam was performed according to our departmental dose-optimization program, which includes automated exposure control, adjustment of the mA and/or kV according to patient size and/or use of iterative reconstruction technique. FINDINGS: Lungs: Patchy interstitial thickening in the lingula and right middle lobe. Moderate right and small left pleural effusions with more dense focal airspace consolidation in both lower lobes. There are associated air bronchograms. Mediastinum: The heart is enlarged. Limited evaluation due to lack of IV contrast. Moderate atherosclerosis in the thoracic aorta. The trachea and esophagus are unremarkable. Lymph nodes: Somewhat limited evaluation, but no definitive pathologic mediastinal or hilar rossi enlargement based on CT size criteria. Chest wall and lower neck: No significant finding. Bones: Multilevel thoracic spondylosis. Upper abdomen: Limited evaluation due to beam hardening artifact from the patient's right upper extremity. Moderate atherosclerosis in the visualized upper abdominal aorta. IMPRESSION: 1. Bilateral airspace consolidation with moderate right and small left pleural effusions. The findings may be secondary to CHF with pulmonary edema versus multifocal pneumonia. Correlate for bacterial, viral, an atypical etiologies. This is not a typical appearance for Covid 19, but this is not totally excluded. 2. Cardiomegaly. 3. Other findings as above. Electronically signed by: Jonatan Betancourt MD 06/28/2020 9:25 AM CDT
[2020-06-28] MEDS: NON-FORMULARY MEDICATION 1 EA MIS (Hydroxychloroquine Sulfate [Plaquenil] 200 MG) PO SCH (11:43)
[2020-06-28] MEDS: AMIODARONE HCL 200 MG TAB PO SCH (11:43)
[2020-06-28] MEDS: CITALOPRAM HBR 20 MG TAB PO SCH (11:43)
[2020-06-28] MEDS: ASPIRIN (CHEWABLE) 81 MG TAB PO SCH (11:43)
[2020-06-28] MEDS: APIXABAN 5 MG TAB PO SCH ×2 (11:43→20:31)
[2020-06-28] MEDS: LEVOTHYROXINE SODIUM 0.025 MG TAB PO SCH (11:44)
[2020-06-28] MEDS: QUEtiapine FUMARATE 25 MG TAB PO SCH ×3 (11:44→20:31)
[2020-06-28] MEDS: cefTRIAXone SODIUM 1 GM in SODIUM CHL 0.9% 50ML MIN-BAG+ 50 ML IVPB SCH (13:37)
[2020-06-28] MEDS: FUROSEMIDE INJ 40 MG/4 ML VIAL IV SCH ×2 (13:38→18:21)
[2020-06-28] MEDS: DOXYCYCLINE HYCLATE IV 100 MG in SODIUM CHLORIDE 0.9% 250ML 250 ML IVPB SCH ×2 (14:00→23:47)
[2020-06-29] MEDS: PANTOPRAZOLE SODIUM IV 40 MG VIAL IV SCH (06:09)
[2020-06-29] MEDS: IPRATROPIUM/ALBUTEROL 3 ML VIAL INH SCH ×2 (08:50→12:30)
--- NOTE | 2020-06-29 08:59 | PN ---
SUPERVISING PHYSICIAN: Neil Diop MD DATE: 06/28/20 SUBJECTIVE: I had to give the patient some Ativan last night because she was quite agitated, but this morning after lunch, she is much more herself. She did have a lactic acid that was a little elevated on admission and she got some more fluids, so I do not know if she was a little fluid overloaded, so I gave her extra Lasix and I think that helped as well. She has had no further complaints. She remains afebrile. OBJECTIVE: VITAL SIGNS: Temperature 97.8, pulse 73, blood pressure 131/78, respirations 18, saturation 97% on 2 liters nasal cannula. GENERAL: The patient is resting comfortably. Earlier, she was a little slow to arouse, but would arouse. This afternoon, she is much more active. She is alert at this point. CHEST: Lung sounds are a little diminished towards the bases. I am not hearing any obvious rales, rhonchi or wheezing. HEART: Regular rate and rhythm today with no notable murmurs, gallops, or rubs. ABDOMEN: Soft, nontender. Positive bowel sounds. EXTREMITIES: No edema. NEUROLOGIC: She was a little lethargic initially, but this afternoon she has perked up. She is at her baseline levels as far as the confusion, but she actually is very interactive. There are no neuro deficits initially on exam. LABORATORY: White count 6,200, hemoglobin 9.9, hematocrit 30.5, platelet count 193,000. Differential is without a left shift. Chemistry shows normal electrolytes with BUN 29, creatinine 1.25. Lactic acid now is normalized to 1.6. AST and ALT are elevated with AST 47, ALT 64. Again, troponin is up 0.14 compared to 0.10 yesterday. BNP on admission was elevated at 1040 with her initial creatinine 1.26. MICROBIOLOGY: No new specimens. RADIOLOGY: CT of the chest per radiologic interpretation showed bilateral airspace consolidations with moderate right small pleural effusion. Findings could be secondary to congestive heart failure with pulmonary edema versus multifocal pneumonia with cardiomegaly. Please see that report for details. Echocardiogram final report was pending. ASSESSMENT: 1. Hypotension with associated bradycardia, probably related to amiodarone and metoprolol with the patient showing improvement with decreasing the metoprolol from 75 mg b.i.d. to 25 mg b.i.d. 2. Multifocal pneumonia with associated sepsis with lactic acidosis. 3. Elevated troponin level, etiology uncertain, with no significant EKG changes and the patient reporting no chest pains with echocardiogram pending, possibly related to some mild congestive heart failure exacerbation. 4. Elevated transaminases, etiology uncertain at this point. PLAN: We will continue with treatment. I saline locked her. I put her some Lasix as well. Her lactic acidosis is resolved, but her CT does show she has probable multifocal pneumonia, so she is continued on antibiotics with Rocephin and doxycycline due to the fact that she is on amiodarone. We may touch base with Dr. Mooney regarding her troponin, but this may be related to the underlying congestive heart failure. Again, we are awaiting final report on the echocardiogram. She does have a Hahn catheter in place. I had to give her some Ativan because she does get quite confused with some Sundowner[employer] in the afternoon. We will continue to treat for multifocal pneumonia. I did change her metoprolol to 25 mg b.i.d. from 75 mg b.i.d. and continue with the same dose of amiodarone. At this point, she seems to be stable cardiac-mari. Heart rate has been stable in the 70s to 80s. We will continue with aggressive hygiene and hopefully be able to transition the patient back to [facility] within the next 2 or 3 days, if not sooner. Until, we will continue to monitor and treat as needed. #[id number] [facility]
[2020-06-29] MEDS ORDERED: METOPROLOL TARTRATE 25 MG TAB PO SCH (11:00)
[2020-06-29] MEDS: NON-FORMULARY MEDICATION 1 EA MIS (Hydroxychloroquine Sulfate [Plaquenil] 200 MG) PO SCH (11:06)
[2020-06-29] MEDS: FUROSEMIDE INJ 40 MG/4 ML VIAL IV SCH ×2 (11:06)
[2020-06-29] MEDS: ASPIRIN (CHEWABLE) 81 MG TAB PO SCH (11:19)
[2020-06-29] MEDS: APIXABAN 5 MG TAB PO SCH (11:19)
[2020-06-29] MEDS: CITALOPRAM HBR 20 MG TAB PO SCH (11:19)
[2020-06-29] MEDS: AMIODARONE HCL 200 MG TAB PO SCH (11:20)
[2020-06-29] MEDS: QUEtiapine FUMARATE 25 MG TAB PO SCH (11:20)
[2020-06-29] MEDS: LEVOTHYROXINE SODIUM 0.025 MG TAB PO SCH (11:20)
[2020-06-29] MEDS: cefTRIAXone SODIUM 1 GM in SODIUM CHL 0.9% 50ML MIN-BAG+ 50 ML IVPB SCH (11:21)
[2020-06-29 13:44] VITALS: O2SAT 93
[2020-06-29 13:52] VITALS: BP 125/84; TEMP 98
--- NOTE | 2020-06-29 15:06 | DS ---
SUPERVISING PHYSICIAN: Neil Diop MD DISCHARGE DIAGNOSIS: 1. Hypotension with associated bradycardia, probably related to amiodarone and metoprolol with the patient showing improvement with decreasing the metoprolol. 2. Multifocal pneumonia with associated sepsis with lactic acidosis. 3. Elevated troponin level, etiology unknown. There were no significant EKG changes and the patient has no complaints of chest pain, may be related to some mild congestive heart failure exacerbation or unreported hypoxia. 4. Elevated transaminases, etiology uncertain. 5. Hypothyroidism with an elevated TSH of 14. HISTORY OF PRESENT ILLNESS: This is an 80-year-old female patient who resides at [facility]. She came to the Emergency Room via EMS Due to some mildly altered mental status with some weakness and difficulty standing. The patient has a history of dementia. She did say that her symptoms started earlier in the day. Several weeks ago, she was in the Emergency Room for new onset of atrial fibrillation with rapid ventricular response. She was treated in [place] and discharged on amiodarone with an increased dose of metoprolol as well as diuretics. Her initial blood pressure in the Emergency Room was 80/60 with heart rate 43, O2 saturation 100% on room air. She was given some fluids and labs showed an elevated BNP at 1040. Troponin was a little elevated at 0.09. Creatinine 1.26. Lactic acid was 4.2. After judicious fluids repeated it came down to 3.3. Urinalysis showed 100 protein, otherwise within normal limits. She had a COVID-19 test that was negative. After fluids, her blood pressure did improve and she was up to 109/72, O2 saturation 97% on room air. Heart rate was still in the 40s. It was suspected that her heart rate was due to the addition of the amiodarone as well as increasing the metoprolol. The patient was placed in observation for further workup and evaluation. HOSPITAL COURSE: The patient was admitted to the hospital in stable condition with the exception of her low heart rate. There was also some question of a possible developing pneumonia after she had been diuresed in the Emergency Room. She was on Xopenex breathing treatments and her labs were followed including her lactic acid that finally normalized. She was given judicious fluids due to her elevated BNP. An echocardiogram was run. There were no complaints of chest pain, no notable changes on her EKG. She did get somewhat agitated during one of her nights and was given some Ativan. She was also given some extra Lasix due to possibly being slightly fluid overloaded and her BNP being elevated. She was given Rocephin and doxycycline for the pneumonia. Her metoprolol was actually held for several days and restarted at 12.5 mg b.i.d. She continued on the amiodarone at 100 mg daily. Her heart rate has been in the 70s to 80s. She did have an elevation in her troponin from 0.1 to 0.14, but most likely due to her congestive heart failure. She will be discharged to [facility] in stable condition. LABORATORY: WBCs were stable at 6.2 with hemoglobin 9.9, hematocrit 30.5. Her sodium remained stable at 136 with potassium 4.4, chloride 102, carbon dioxide 23, BUN 32, creatinine 1.33. Lactic acid initially was 4.2 and came down to 3.3 and yesterday was normalized at 1.6. AST 59, today it is 47. ALT on admission was 65 and today is 64. Initial troponin was 0.09 and several days remained stable at 0.09 or 0.1 and today is 0.14. BNP on admission was 1040. RADIOLOGY: Chest x-ray shows 1) No acute chest findings. 2) Mildly enlarged cardiac silhouette, unchanged. 3) Unchanged bibasilar predominantly reticular airspace disease, likely scarring or atelectasis, however, superimposed atypical infectious process not entirely excluded. Head CT shows no acute intracranial pathology. Chest CT shows 1) Bilateral airspace consolidation with moderate right and small left pleural effusion. Findings may be secondary to CHF with pulmonary edema versus multifocal pneumonia. Correlate for bacterial/viral atypical etiologies. This is not a typical appearance for COVID-19, but is not totally excluded. 2) Cardiomegaly. 3) Findings as per the report. DISCHARGE PLAN: The patient will be discharged to [facility] in fair condition. She is to resume her previous diet and increase her activity as tolerated. She will have a followup with Dr. Diop within the next 1 to 2 weeks. In addition to her routine medications, she will have cefdinir for 8 days, doxycycline for 8 days. Her metoprolol has been changed to 12.5 mg twice daily. Her Hahn catheter will be continued due to some urinary retention. She will need bladder training and discontinuance of her catheter at [facility]. If she continues to have urinary retention, recommend a Urology consult. I have not changed her levothyroxine and it may warranted to increase her dosing, but I will leave that up to Dr. Diop on followup. She is to return to the hospital or followup with Dr. Diop for any problems or complications. DISCHARGE MEDICATIONS: 1. Multivitamins. 2. Hydroxychloroquine. 3. Furosemide. 4. Ascorbic acid. 5. Align. 6. Potassium chloride. 7. Zofran. 8. Magnesium oxide. 9. Levothyroxine. 10. Albuterol. 11. Lactobacillus. 12. Cyanocobalamin. 13. Aspirin. 14. Amiodarone. 15. Eliquis. 16. Citalopram. 17. Seroquel. 18. Cefdinir. 19. Doxycycline. 20. Metoprolol tartrate 12.5 mg p.o. b.i.d. #[id number] [facility]
== END 2020-06-29 14:00 ==
LOC: ER 00:05 → MS 03:46
PROVIDERS: ADMIT Nurse Practitioner Family; ATTEND Nurse Practitioner Acute Care
DX: A41.9 Sepsis, unspecified organism (principal); J18.9 Pneumonia, unspecified organism; E87.2 Acidosis; I95.9 Hypotension, unspecified; R00.1 Bradycardia, unspecified; R74.8 Abnormal levels of other serum enzymes; R74.01 Elevation of levels of liver transaminase levels; E03.9 Hypothyroidism, unspecified; R57.0 Cardiogenic shock; R33.9 Retention of urine, unspecified; R45.1 Restlessness and agitation; R41.82 Altered mental status, unspecified; R53.1 Weakness; F03.90 Unspecified dementia, unspecified severity, without behavioral disturbance, psychotic disturbance, mood disturbance, and anxiety; I11.9 Hypertensive heart disease without heart failure; E78.5 Hyperlipidemia, unspecified; I48.91 Unspecified atrial fibrillation; J44.9 Chronic obstructive pulmonary disease, unspecified; F17.210 Nicotine dependence, cigarettes, uncomplicated; I25.2 Old myocardial infarction; Z20.828 Contact with and (suspected) exposure to other viral communicable diseases; Z79.01 Long term (current) use of anticoagulants; Z79.1 Long term (current) use of non-steroidal anti-inflammatories (NSAID); Z79.82 Long term (current) use of aspirin; Z79.890 Hormone replacement therapy; Z79.899 Other long term (current) drug therapy; Z88.2 Allergy status to sulfonamides
CPT/HCPCS: 96366 ×2; 96367; 96365; 96375 ×2; 96376 ×2; J7611; J0696 ×3; J1940 ×2; J2060 ×4; J7040; J7030 ×2; J7050 ×7; J7620 ×9; J7799; 85379; 82553; 80053 ×3; 36415 ×6; 81001; 86140; 85025 ×2; 82550; 83735; 85730; 85610; 84443; 84484 ×5; 83880; 83605 ×5; 71045; 70450; 71250; 94640 ×10; 94760 ×6; 99285; 93306; 93005; G0378; 87581; 87486; 87633; 87635 ×2

== ENCOUNTER 2020-07-14 14:22 | Emergency (ER) | payer MEDICARE, OTHER ==
[2020-07-14] MEDS ORDERED: HALOPERIDOL LACTATE INJ 5 MG/ML VIAL IM ONE (14:59)
--- NOTE | 2020-07-14 16:17 | ED.PDOC ---
History of Present Illness - General Chief Complaint: Behavioral / Psych Stated Complaint: Sent over by [facility] for AMS and combative behavior Time Seen by Provider: 07/14/20 14:52 - History of Present Illness Initial Comments: 80F with past medical history of dementia brought to the ED due to aggressive behavior at the nursing facility. The patient denies any complains and states that "I just hate it there and they won't let me go outside." She was trying to go home and became aggressive toward staff members. She is currently oriented only to self and place which appears to be her baseline. She is currently refusing all care. Allergies/Adverse Reactions: Allergies Sulfa Drugs Allergy (Verified 07/14/20 14:59) Other Itching Home Medications: Ambulatory Orders Ascorbic Acid [Vitamin C 500 mg] 1 tab PO DAILY 01/08/20 Furosemide 20 mg PO DAILY 01/08/20 Hydroxychloroquine Sulfate [Plaquenil] 200 mg PO DAILY 01/08/20 Lactobacillus [Acidophilus Lactobacilli] 10 mg PO DAILY 01/08/20 Multiple Vitamins W/ Minerals [Multi Vitamin and Mineral] 1 tab PO DAILY 01/08/20 Potassium Chloride [Potassium Chloride ER] 20 meq PO DAILY 01/08/20 Albuterol Sulfate [Proventil Hfa] 90 mcg INH Q6H PRN 06/08/20 Levothyroxine Sodium 25 mcg PO DAILY 06/08/20 Magnesium Oxide 400 mg PO DAILY 06/08/20 Ondansetron [Ondansetron Odt] 4 mg PO Q6H PRN 06/08/20 Amiodarone HCl [Amiodarone Hydrochloride] 100 mg PO DAILY 06/27/20 Apixaban [Eliquis] 2.5 mg PO BID 06/27/20 Aspirin [Aspirin 81 Low Dose] 81 mg PO DAILY 06/27/20 Citalopram Hydrobromide 10 mg PO DAILY 06/27/20 Cyanocobalamin [B12] 1,000 mcg PO DAILY 06/27/20 Lactobacillus [Acidophilus] 10 mg PO DAILY 06/27/20 QUEtiapine FUMARATE [Seroquel] 25 mg PO TID 06/27/20 Cefdinir 300 mg PO BID #16 capsule 06/29/20 Doxycycline Hyclate 100 mg PO BID #16 cap 06/29/20 Metoprolol Tartrate [Lopressor] 12.5 mg PO BID #60 tab 06/29/20 Review of Systems - Review of Systems Unable to Obtain Due To: dementia Past Medical History (General) - Patient Medical History Hx Seizures: No Hx Stroke: No Hx Dementia: Yes Hx Asthma: No Hx of COPD: Yes Hx Cardiac Disorders: Yes - A fib Hx Congestive Heart Failure: Yes Hx Pacemaker: No Hx Hypertension: Yes Hx Thyroid Disease: No Hx Diabetes: No Hx Gastroesophageal Reflux: No Hx Renal Disease: No Hx Cancer: No Hx of HIV: No Hx Hepatitis C: No Hx MRSA: No - Vaccination History Hx Tetanus, Diphtheria Vaccination: Yes Hx Influenza Vaccination: Yes Hx Pneumococcal Vaccination: Yes - Social History Hx Tobacco Use: Yes Hx Chewing Tobacco Use: No Hx Alcohol Use: No Hx Substance Use: No Hx Substance Use Treatment: No Hx Depression: Yes Hx Physical Abuse: No Hx Emotional Abuse: No Hx Suspected Abuse: No - Activities of Daily Living [facility]/Assisted Living (if applicable):: [facility] - Female History Patient is a Female of Child Bearing Age (10 -59 yrs old): No Patient : No Family Medical History - Family History Mother Family History: Unknown Living Status: Age at (years of age): 89 Hx Cardiac Disease: Yes - parents Hx Family Cancer: Yes - pancreatic cancer -several family members Hx Family;Other: Rheumatoid arthitis-mom Father Family History: Unknown Physical Exam - Physical Exam General Appearance: Alert, No apparent distress Ears, Nose, Throat: normal ENT inspection Respiratory: no respiratory distress Cardiovascular/Chest: normal peripheral pulses Gastrointestinal/Abdominal: non tender, soft Extremity: normal range of motion, non-tender Neurologic: no motor/sensory deficits, alert Skin Exam: normal color, warm/dry Progress - Progress Progress: 07/14/20 16:15 The patient is reassessed, workup as below. She refuses urine sample. She appears to be at her baseline and has normal vital signs. There is no fever or leukocytosis and no evidence suggestive of acute infection. Will defer forced urinary catheter at this time as she does not likely have UTI causing mental status change. Her behavioral changes are likely secondary to her dementia. She has had multiple presentations for same this year. No new findings today, okay to continue usual outpatient care. - Results/Orders Results/Orders: 07/14/20 15:00 URINALYSIS Stat Laboratory Results - last 24 hr 07/14/20 07/14/20 15:21 15:21 WBC 7.4 RBC 4.52 Hgb 11.1 L Hct 35.5 L MCV 78.7 L MCH 24.7 L MCHC 31.4 L RDW 17.3 H Plt Count 267 MPV 8.3 Absolute Neuts (auto) 5.30 Absolute Lymphs (auto) 1.20 Absolute Monos (auto) 0.60 Absolute Eos (auto) 0.20 Absolute Basos (auto) 0.10 Neutrophils % 71.8 Lymphocytes % 16.9 L Monocytes % 7.7 Eosinophils % 2.9 Basophils % 0.7 Sodium 138 Potassium 4.6 Chloride 103 Carbon Dioxide 24 Anion Gap 15.6 BUN 22 H Creatinine 1.15 BUN/Creatinine Ratio 19.1 Random Glucose 109 H Serum Osmolality 279.6 Calcium 9.0 Departure - Departure Clinical Impression: Psychological disorder Time of Disposition: 16:16 Disposition: Discharge to Home or Self Care Condition: Fair Departure Forms: ED Discharge - Pt. Copy, Patient Portal Self Enrollment Instructions: DI for Psychosis, Acute Psychosis (DC) Diet: resume usual diet Activity: increase activity as tolerated Referrals: RADHA PARRA MD [Primary Care Provider] - 1-2 Weeks Home Medications: Ambulatory Orders Ascorbic Acid [Vitamin C 500 mg] 1 tab PO DAILY 01/08/20 Furosemide 20 mg PO DAILY 01/08/20 Hydroxychloroquine Sulfate [Plaquenil] 200 mg PO DAILY 01/08/20 Lactobacillus [Acidophilus Lactobacilli] 10 mg PO DAILY 01/08/20 Multiple Vitamins W/ Minerals [Multi Vitamin and Mineral] 1 tab PO DAILY 01/08/20 Potassium Chloride [Potassium Chloride ER] 20 meq PO DAILY 01/08/20 Albuterol Sulfate [Proventil Hfa] 90 mcg INH Q6H PRN 06/08/20 Levothyroxine Sodium 25 mcg PO DAILY 06/08/20 Magnesium Oxide 400 mg PO DAILY 06/08/20 Ondansetron [Ondansetron Odt] 4 mg PO Q6H PRN 06/08/20 Amiodarone HCl [Amiodarone Hydrochloride] 100 mg PO DAILY 06/27/20 Apixaban [Eliquis] 2.5 mg PO BID 06/27/20 Aspirin [Aspirin 81 Low Dose] 81 mg PO DAILY 06/27/20 Citalopram Hydrobromide 10 mg PO DAILY 06/27/20 Cyanocobalamin [B12] 1,000 mcg PO DAILY 06/27/20 Lactobacillus [Acidophilus] 10 mg PO DAILY 06/27/20 QUEtiapine FUMARATE [Seroquel] 25 mg PO TID 06/27/20 Cefdinir 300 mg PO BID #16 capsule 06/29/20 Doxycycline Hyclate 100 mg PO BID #16 cap 06/29/20 Metoprolol Tartrate [Lopressor] 12.5 mg PO BID #60 tab 06/29/20
[2020-07-14 17:05] VITALS: BP 140/93; TEMP 97.5; O2SAT 96
== END 2020-07-14 17:00 | disposition home or self-care (01) ==
LOC: ER 14:22
DX: F59 Unspecified behavioral syndromes associated with physiological disturbances and physical factors (principal); F03.90 Unspecified dementia, unspecified severity, without behavioral disturbance, psychotic disturbance, mood disturbance, and anxiety; J44.9 Chronic obstructive pulmonary disease, unspecified; I48.91 Unspecified atrial fibrillation; I50.9 Heart failure, unspecified; I11.0 Hypertensive heart disease with heart failure; F32.9 Major depressive disorder, single episode, unspecified; Z79.899 Other long term (current) drug therapy; Z79.01 Long term (current) use of anticoagulants; Z79.82 Long term (current) use of aspirin; Z88.2 Allergy status to sulfonamides; Z87.891 Personal history of nicotine dependence

== ENCOUNTER 2020-07-15 08:53 | Emergency (ER) | payer MEDICARE, OTHER ==
--- NOTE | 2020-07-15 09:10 | ED.PDOC ---
History of Present Illness - General Chief Complaint: Behavioral / Psych Stated Complaint: AMS, combative, chronic dementia Time Seen by Provider: 07/15/20 09:00 Source: patient, RN notes reviewed, Vital Signs reviewed, EMS notes reviewed Exam Limitations: no limitations - History of Present Illness Initial Comments: Pt is an 80 yo female with PMH of dementia who was sent from [place] for combative behavior. Pt was seen in ED yesterday for same and had CBC, BMP that were reassuring and DC back to [place]. Pt states she has no complaints and is refusing exam or any testing at this time. She states that the [facility] staff will not let her go outside so she gets upset. She also wants to be released so that she can go home and does not want to be in the [place] anymore. Pt denies fever, HUBER, CP, SOB or any other symptoms. Allergies/Adverse Reactions: Allergies Sulfa Drugs Allergy (Verified 07/15/20 09:19) Other Itching Home Medications: Ambulatory Orders Ascorbic Acid [Vitamin C 500 mg] 1 tab PO DAILY 01/08/20 Furosemide 20 mg PO DAILY 01/08/20 Hydroxychloroquine Sulfate [Plaquenil] 200 mg PO DAILY 01/08/20 Lactobacillus [Acidophilus Lactobacilli] 10 mg PO DAILY 01/08/20 Multiple Vitamins W/ Minerals [Multi Vitamin and Mineral] 1 tab PO DAILY 01/08/20 Potassium Chloride [Potassium Chloride ER] 20 meq PO DAILY 01/08/20 Albuterol Sulfate [Proventil Hfa] 90 mcg INH Q6H PRN 06/08/20 Levothyroxine Sodium 25 mcg PO DAILY 06/08/20 Magnesium Oxide 400 mg PO DAILY 06/08/20 Ondansetron [Ondansetron Odt] 4 mg PO Q6H PRN 06/08/20 Amiodarone HCl [Amiodarone Hydrochloride] 100 mg PO DAILY 06/27/20 Apixaban [Eliquis] 2.5 mg PO BID 06/27/20 Aspirin [Aspirin 81 Low Dose] 81 mg PO DAILY 06/27/20 Citalopram Hydrobromide 10 mg PO DAILY 06/27/20 Cyanocobalamin [B12] 1,000 mcg PO DAILY 06/27/20 Lactobacillus [Acidophilus] 10 mg PO DAILY 06/27/20 QUEtiapine FUMARATE [Seroquel] 25 mg PO TID 06/27/20 Cefdinir 300 mg PO BID #16 capsule 06/29/20 Doxycycline Hyclate 100 mg PO BID #16 cap 06/29/20 Metoprolol Tartrate [Lopressor] 12.5 mg PO BID #60 tab 06/29/20 Review of Systems - Review of Systems Constitutional: Denies: fever, weakness Respiratory: Denies: cough, short of breath Cardiology: Denies: chest pain, syncope Gastrointestinal/Abdominal: Denies: abdominal pain, nausea, vomiting Genitourinary: Denies: dysuria Musculoskeletal: Denies: back pain, neck pain Skin: States: no symptoms reported Neurological: Denies: headache, weakness All other Systems: Reviewed and Negative Past Medical History (General) - Patient Medical History Hx Seizures: No Hx Stroke: No Hx Dementia: Yes Hx Asthma: No Hx of COPD: Yes Hx Cardiac Disorders: Yes - A fib Hx Congestive Heart Failure: Yes Hx Pacemaker: No Hx Hypertension: Yes Hx Thyroid Disease: No Hx Diabetes: No Hx Gastroesophageal Reflux: No Hx Renal Disease: No Hx Cancer: No Hx of HIV: No Hx Hepatitis C: No Hx MRSA: No - Vaccination History Hx Tetanus, Diphtheria Vaccination: Yes Hx Influenza Vaccination: Yes Hx Pneumococcal Vaccination: Yes - Social History Hx Tobacco Use: Yes Hx Chewing Tobacco Use: No Hx Alcohol Use: No Hx Substance Use: No Hx Substance Use Treatment: No Hx Depression: Yes Hx Physical Abuse: No Hx Emotional Abuse: No Hx Suspected Abuse: No - Female History Patient : No Family Medical History - Family History Mother Family History: Unknown Living Status: Age at (years of age): 89 Hx Cardiac Disease: Yes - parents Hx Family Cancer: Yes - pancreatic cancer -several family members Hx Family;Other: Rheumatoid arthitis-mom Father Family History: Unknown Physical Exam - Physical Exam General Appearance: Alert, Comfortable, No apparent distress, Other - Seated on bed in no distress Eye Exam: bilateral normal - PERRL Neck: full range of motion, supple Respiratory: other - Pt refuses exam Cardiovascular/Chest: other - Pt refuses exam Gastrointestinal/Abdominal: other - Refuses exam Extremity: other - She is moving all extremities w/o pain. No deformity Neurologic: other - She is alert and oriented to person and place. Does not know the year. She is aware that she is in the hospital and knows she was here yesterday. Can clearly state that she wants nothing done today and does not want to be in NH any longer. Skin Exam: normal color, warm/dry Progress - Progress Progress: 07/15/20 09:52 Pt is alert and answering questions appropriately. She does not appear to be confused or combative. States she just doesn't want to be in the NH anymore and gets mad when they will not let her go outside. Pt has refused any exam or testing. I have attempted to call her son Cristobal Davis([phone]) and spouse Greg Davis([phone]) both listed as emergency contacts on [place] paperwork, but was not able to reach either person. Pt continues to refuse any evaluation in the ED. She is resting comfortably on bed in Trauma room. I talked to Olga, nurse at [facility]. She states that patient has been combative at Nursing Facility and noncompliant with medication. Last night, she was attempting to break a window and was given 1 dose of Haldol. They sent her to ED to be evaluated for combative behavior. 07/15/20 10:07 Pt resting comfortably. I have discussed that [place] nurse stated she was combative and tried to break a window. Pt states she just does not like the NH and wants to be let out so that she can go back and live at home. She is conversational and coherent at this time and refuses any evaluation. She did allow me to place pox and her O2 sat is 95% on RA and pulse is regular and 62. She denies thoughts of harming herself or others. Pt requesting to be discharged. 07/15/20 10:32 Pt alert and coherent. Able to make her own decisions. Pt declines any testing or evaluation. She has been pleasant and answers questions appropriately. She states she was angry at the nursing facility because she does not like it there. States she became a resident there at end of May and just wants to get out of the facility so she can go back home to live. Departure - Departure Clinical Impression: Dementia Qualifiers: Dementia type: unspecified type Dementia behavioral disturbance: with behavioral disturbance Qualified Code(s): F03.91 - Unspecified dementia with behavioral disturbance Time of Disposition: 10:10 Disposition: Discharge to SNF Condition: Fair Departure Forms: ED Discharge - Pt. Copy, Patient Portal Self Enrollment Instructions: DI for Psychosis, Dementia (DC) Diet: resume usual diet Activity: increase activity as tolerated Referrals: RADHA PARRA MD [Primary Care Provider] - 1-2 Days Home Medications: Ambulatory Orders Ascorbic Acid [Vitamin C 500 mg] 1 tab PO DAILY 01/08/20 Furosemide 20 mg PO DAILY 01/08/20 Hydroxychloroquine Sulfate [Plaquenil] 200 mg PO DAILY 01/08/20 Lactobacillus [Acidophilus Lactobacilli] 10 mg PO DAILY 01/08/20 Multiple Vitamins W/ Minerals [Multi Vitamin and Mineral] 1 tab PO DAILY 01/08/20 Potassium Chloride [Potassium Chloride ER] 20 meq PO DAILY 01/08/20 Albuterol Sulfate [Proventil Hfa] 90 mcg INH Q6H PRN 06/08/20 Levothyroxine Sodium 25 mcg PO DAILY 06/08/20 Magnesium Oxide 400 mg PO DAILY 06/08/20 Ondansetron [Ondansetron Odt] 4 mg PO Q6H PRN 06/08/20 Amiodarone HCl [Amiodarone Hydrochloride] 100 mg PO DAILY 06/27/20 Apixaban [Eliquis] 2.5 mg PO BID 06/27/20 Aspirin [Aspirin 81 Low Dose] 81 mg PO DAILY 06/27/20 Citalopram Hydrobromide 10 mg PO DAILY 06/27/20 Cyanocobalamin [B12] 1,000 mcg PO DAILY 06/27/20 Lactobacillus [Acidophilus] 10 mg PO DAILY 06/27/20 QUEtiapine FUMARATE [Seroquel] 25 mg PO TID 06/27/20 Cefdinir 300 mg PO BID #16 capsule 06/29/20 Doxycycline Hyclate 100 mg PO BID #16 cap 06/29/20 Metoprolol Tartrate [Lopressor] 12.5 mg PO BID #60 tab 06/29/20
[2020-07-15 09:19] VITALS: TEMP 97.7
== END 2020-07-15 12:00 ==
LOC: ER 08:53
DX: F03.91 Unspecified dementia, unspecified severity, with behavioral disturbance (principal); I48.91 Unspecified atrial fibrillation; J44.9 Chronic obstructive pulmonary disease, unspecified; I11.0 Hypertensive heart disease with heart failure; I50.9 Heart failure, unspecified; F32.9 Major depressive disorder, single episode, unspecified; Z79.01 Long term (current) use of anticoagulants; Z79.82 Long term (current) use of aspirin; Z79.899 Other long term (current) drug therapy; Z87.891 Personal history of nicotine dependence